=== PATIENT | male | born 1950 | race Caucasian/White ===

== ENCOUNTER 2017-08-15 11:58 | Inpatient (IN) ==
[2017-08-15] MEDS ORDERED: Isovue-370 500 ML INFUS..BTL IV ONE (12:19)
--- NOTE | 2017-08-15 12:22 | Emergency Department Note ---
Disposition Clinical Impression: Hypertensive urgency, Unsteady gait Disposition: Admitted As Inpatient Condition: Fair Referrals: Juancarlos Mayo DO [Family Provider] - Forms: ED Satisfaction Letter Time of Disposition: 16:04 General Adult HPI - General Chief complaint: ED Weakness Stated complaint: weak, falls Time Seen by Provider: 08/15/17 12:04 Source: patient Mode of arrival: ambulatory Limitations: no limitations Nursing Notes Reviewed: Yes Vital Signs Reviewed: Yes - History of Present Illness HPI Narrative: 66-year-old whose had progressive of difficulty walking and about a 50 pound weight loss over the last couple of months. He had an MRI of his lumbar spine showed degenerative changes. Says he has some discomfort in his anterior abdominal wall and it does not related to Lyrica being stopped as his doctor can no longer write for as it has become controlled. Pt Subjective Complaint: Weight loss difficulty walking Onset (ago): week(s) Location: abdomen Radiation: non-radiation Pain Scale: 10 Quality: burning Consistency: constant Improves with: nothing Worsens with: nothing Associated symptoms: Reports: other (Weight loss) - Related Data Allergies Allergy/AdvReac Type Severity Reaction Status Date / Time No Known Allergies Allergy Verified 08/15/17 17:22 All systems ED: reviewed and negative except as stated. Constitutional: Reports: weight change (Loss 50 pounds). Denies: fever, chills , weakness Eyes: Denies: eye pain, eye discharge, vision change ENT ED: Denies: ear pain, throat pain, dental pain, hearing loss, epistaxis, congestion, dysphagia Cardiovascular: Denies: chest pain, palpitations, dyspnea on exertion, edema, syncope Respiratory: Denies: cough, dyspnea, wheezes, hemoptysis, stridor Gastrointestinal: Reports: abdominal pain. Denies: nausea, vomiting, diarrhea, constipation, hematemesis, melena, hematochezia Genitourinary: Denies: urgency, dysuria, frequency, hematuria Musculoskeletal: Denies: back pain, neck pain, arthralgia, myalgia Integumentary: Denies: rash, abrasion, lesions Neurological: Denies: headache, weakness, numbness, paresthesias, confusion, abnormal gait, vertigo Psychiatric: Denies: anxiety, depression, suicidal thoughts, homicidal thoughts , auditory hallucinations, visual hallucinations Endocrine: Denies: fatigue Hematological/Lymphatic: Denies: easy bleeding, easy bruising Allergic/Immunologic: Denies: facial swelling, urticaria Physical Exam - General Limitations: no limitations General appearance: alert, in no apparent distress - Head Head exam: atraumatic, normocephalic, normal inspection - Eye Eye exam: Present: normal appearance, PERRL, EOMI - ENT ENT exam: normal exam, normal oropharynx, mucous membranes moist - Neck Neck exam: Present: normal inspection, full ROM, trachea midline - Chest Chest inspection: Present: normal inspection, symmetric chest wall rise - Respiratory Respiratory exam: Present: normal lung sounds bilaterally - Cardiovascular Cardiovascular exam: Present: regular rate, normal rhythm, normal heart sounds - Abdominal Exam Abdominal exam: Present: soft, Non-Tender. Absent: tenderness, distention, guarding, rebound, rigidity - Extremities Exam Extremities exam: Present: normal inspection, full ROM. Absent: tenderness, pedal edema - Expanded Lower Extremity Exam Neurovascular/Tendon exam: Absent: motor deficit, sensory deficit, tendon deficit Gait: observed and normal - Back Exam Back exam: Present: normal inspection, full ROM. Absent: tenderness - Neurological Exam Neurological exam: Present: alert, oriented X3 - Psychiatric Psychiatric exam: Present: normal affect, normal mood - Skin Skin exam: Present: warm, dry, intact, normal color Course - Reevaluation(s) Reevaluation #1: 66-year-old who comes in complaining of difficulty ambulating 50 pound weight loss unsteady gait. Initial blood pressure was of okay however the blood pressure balwinder steadily while here in emergency department with a diastolic of 137. We will started nicardipine drip and obtained neurology consult were admitted to the hospitalist. Time: 16:03 - Consultations Consultation #1: Discussed with , we will see the patient in consult. Time: 16:01 Consultation #2: Discussed with , admit. Time: 17:26 Vital Signs Temperature 97.5 F L 08/15/17 12:00 Pulse Rate 81 08/15/17 12:00 Respiratory Rate 16 08/15/17 12:00 Blood Pressure 127/81 08/15/17 12:00 O2 Sat by Pulse Oximetry 95 08/15/17 12:00 Temperature 97.5 F L 08/15/17 12:10 Pulse Rate 73 08/15/17 16:34 Respiratory Rate 18 08/15/17 16:34 Blood Pressure 223/121 08/15/17 16:34 O2 Sat by Pulse Oximetry 100 08/15/17 16:34 Oxygen Delivery Oxygen Delivery Room Air Medical Decision Making - Lab Data Result diagrams: 08/15/17 12:28 08/15/17 12:28 Lab Results 08/15/17 08/15/17 08/15/17 Range/Units 12:28 12:28 12:28 WBC 11.9 H (4.3-11.1) K/mcL RBC 5.87 H (4.19-5.50) M/mcL Hgb 17.2 H (12.9-16.9) g/dL Hct 51.0 H (37.5-50.1) % MCV 86.9 (83.0-100.0) fL MCH 29.3 (28.0-33.3) pg MCHC 33.7 (31.6-35.5) g/dL RDW 12.7 (11.5-14.5) % Plt Count 264 (140-400) K/mcL MPV 10.8 (9.4-12.4) fL Immature Gran % 0.4 (0-4) % Seg Neutrophils % 72.0 % Lymphocytes % 16.6 % Monocytes % 5.7 % Eosinophils % 4.5 % Basophils % 0.8 % Neutrophils # 8.6 (1.6-8.9) K/mcL Lymphocytes # 2.0 (0.6-4.6) K/mcL Monocytes # 0.7 (0.0-1.3) K/mcL Eosinophils # 0.5 (0.0-0.6) K/mcL Basophils # 0.1 (0.0-0.2) K/mcL Sodium 138 (136-145) mEq/L Potassium 3.6 (3.5-5.1) mEq/L Chloride 101 (98-107) mEq/L Carbon Dioxide 28 (23-29) mEq/L BUN 20 (8-23) mg/dL Creatinine 1.42 H (0.70-1.30) mg/dL Est GFR ( Amer) > 60 (> 60) Est GFR (Non-Af Amer) 50 L (> 60) BUN/Creatinine Ratio 14 (6-26) Glucose 207 H (70-105) mg/dL Calculated Osmolality 295 (280-300) Lactic Acid 1.6 (0.5-2.2) mmol/L Calcium 9.9 (8.6-10.3) mg/dL Total Bilirubin 0.4 (0.3-1.0) mg/dL Direct Bilirubin 0.2 (0.0-0.2) mg/dL Indirect Bilirubin 0.2 (0.0-1.2) mg/dL AST 13 (13-39) Units/L ALT 9 (7-52) Units/L Alkaline Phosphatase 108 H (34-104) Units/L Troponin I 0.03 (< 0.04) ng/mL Serum Total Protein 7.1 (6.4-8.9) g/dL Albumin 3.8 (3.5-5.7) g/dL Globulin 3.3 (2.4-3.5) g/dL Albumin/Globulin Ratio 1.2 (1.1-2.2) Urine Color (Yellow) Urine Clarity (Clear) Urine pH (5.0-8.0) pH Units Ur Specific [place] (1.010-1.025) Urine Protein (Neg-Trace) mg/dL Urine Glucose (UA) (Normal) mg/dL Urine Ketones (Negative) mg/dL Urine Blood (Negative) Urine Nitrite (Negative) Urine Bilirubin (Negative) Urine Urobilinogen (Normal) mg/dL Ur Leukocyte Esterase (Negative) Urine Microscopic RBC (0-3) per hpf Urine Microscopic WBC (0-3) per hpf Ur Squamous Epith Cells (None-Few) per lpf Urine Bacteria (None-Few) per hpf Hyaline Casts (None-Few) per lpf Ur Culture Indicated? (NO) 08/15/17 Range/Units 15:00 WBC (4.3-11.1) K/mcL RBC (4.19-5.50) M/mcL Hgb (12.9-16.9) g/dL Hct (37.5-50.1) % MCV (83.0-100.0) fL MCH (28.0-33.3) pg MCHC (31.6-35.5) g/dL RDW (11.5-14.5) % Plt Count (140-400) K/mcL MPV (9.4-12.4) fL Immature Gran % (0-4) % Seg Neutrophils % % Lymphocytes % % Monocytes % % Eosinophils % % Basophils % % Neutrophils # (1.6-8.9) K/mcL Lymphocytes # (0.6-4.6) K/mcL Monocytes # (0.0-1.3) K/mcL Eosinophils # (0.0-0.6) K/mcL Basophils # (0.0-0.2) K/mcL Sodium (136-145) mEq/L Potassium (3.5-5.1) mEq/L Chloride (98-107) mEq/L Carbon Dioxide (23-29) mEq/L BUN (8-23) mg/dL Creatinine (0.70-1.30) mg/dL Est GFR ( Amer) (> 60) Est GFR (Non-Af Amer) (> 60) BUN/Creatinine Ratio (6-26) Glucose (70-105) mg/dL Calculated Osmolality (280-300) Lactic Acid (0.5-2.2) mmol/L Calcium (8.6-10.3) mg/dL Total Bilirubin (0.3-1.0) mg/dL Direct Bilirubin (0.0-0.2) mg/dL Indirect Bilirubin (0.0-1.2) mg/dL AST (13-39) Units/L ALT (7-52) Units/L Alkaline Phosphatase (34-104) Units/L Troponin I (< 0.04) ng/mL Serum Total Protein (6.4-8.9) g/dL Albumin (3.5-5.7) g/dL Globulin (2.4-3.5) g/dL Albumin/Globulin Ratio (1.1-2.2) Urine Color Yellow (Yellow) Urine Clarity Clear (Clear) Urine pH 6.0 (5.0-8.0) pH Units Ur Specific [place] 1.021 (1.010-1.025) Urine Protein 30 H (Neg-Trace) mg/dL Urine Glucose (UA) Normal (Normal) mg/dL Urine Ketones Negative (Negative) mg/dL Urine Blood Negative (Negative) Urine Nitrite Negative (Negative) Urine Bilirubin Negative (Negative) Urine Urobilinogen Normal (Normal) mg/dL Ur Leukocyte Esterase Trace H (Negative) Urine Microscopic RBC 0-3 (0-3) per hpf Urine Microscopic WBC 0-3 (0-3) per hpf Ur Squamous Epith Cells Few (None-Few) per lpf Urine Bacteria None Seen (None-Few) per hpf Hyaline Casts None Seen (None-Few) per lpf Ur Culture Indicated? YES A (NO) - EKG Data EKG #1 EKG attestation: Yes I reviewed and interpreted this EKG. EKG shows normal: sinus rhythm Rate: normal Rhythm: NSR [place]/QRS: RBBB, LAHB/LAFB Voltage: c/w LVH Interpretation: no acute changes
[2017-08-15 12:51] LABS: Basophils # 0.1 K/mcL (0.0-0.2); Basophils % 0.8 %; Eosinophils # 0.5 K/mcL (0.0-0.6); Eosinophils % 4.5 %; Hemoglobin 17.2 g/dL (12.9-16.9); Immature Granulocytes % 0.4 % (0-4); Lymphocytes % 16.6 %; Mean Corpuscular HGB Conc 33.7 g/dL (31.6-35.5); Mean Corpuscular Hemoglobin 29.3 pg (28.0-33.3); Mean Corpuscular Volume 86.9 fL (83.0-100.0); Mean Platelet Volume 10.8 fL (9.4-12.4); Monocytes # 0.7 K/mcL (0.0-1.3); Monocytes % 5.7 %; Neutrophils # 8.6 K/mcL (1.6-8.9); Platelet Count 264 K/mcL (140-400); Red Blood Count 5.87 M/mcL (4.19-5.50); Red Cell Distribution Width 12.7 % (11.5-14.5)
[2017-08-15 13:10] LABS: Alanine Aminotransferase 9 Units/L (7-52); Albumin 3.8 g/dL (3.5-5.7); Albumin/Globulin Ratio 1.2 (1.1-2.2); Alkaline Phosphatase 108 Units/L (34-104); Aspartate Amino Transferase 13 Units/L (13-39); BUN/Creatinine Ratio 14 (6-26); Bilirubin,Direct 0.2 mg/dL (0.0-0.2); Bilirubin,Indirect 0.2 mg/dL (0.0-1.2); Bilirubin,Total 0.4 mg/dL (0.3-1.0); Blood Urea Nitrogen 20 mg/dL (8-23); Calcium 9.9 mg/dL (8.6-10.3); Carbon Dioxide 28 mEq/L (23-29); Chloride 101 mEq/L (98-107); Globulin 3.3 g/dL (2.4-3.5); Glucose 207 mg/dL (70-105); Osmolality,Calculated 295 (280-300); Potassium 3.6 mEq/L (3.5-5.1); Sodium 138 mEq/L (136-145); Total Protein 7.1 g/dL (6.4-8.9); Troponin I 0.03 ng/mL (< 0.04); eGFR For African Americans > 60 (> 60); eGFR For Non-African Americans 50 (> 60)
[2017-08-15] MEDS ORDERED: 0.9 % Sodium Chloride 1,000 ML IVC ONE (13:41)
[2017-08-15] MEDS ORDERED: Ondansetron 4 MG/2 ML VIAL IVP ONE ×2 (13:41→18:54)
[2017-08-15] MEDS ORDERED: *HR* FentaNYL (PF) 100 MCG/2 ML VIAL IVP ONE (13:41)
[2017-08-15 15:47] LABS: Bilirubin,Urine Negative (Negative); Blood,Urine Negative (Negative); Clarity,Urine Clear (Clear); Color,Urine Yellow (Yellow); Glucose,Urine (UA) Normal (Normal); Ketones,Urine Negative (Negative); Leukocyte Esterase,Urine Trace (Negative); Nitrite,Urine Negative (Negative); Protein,Urine 30 mg/dL (Neg-Trace); Specific Gravity,Urine 1.021 (1.010-1.025); Urobilinogen,Urine Normal (Normal)
[2017-08-15 15:49] LABS: Bacteria,Urine None Seen per hpf (None-Few); Hyaline Casts,Urine None Seen per lpf (None-Few); RBC,Urine 0-3 per hpf (0-3); Squamous Epithelial Cell,Urine Few per lpf (None-Few); WBC,Urine 0-3 per hpf (0-3)
[2017-08-15] MEDS: niCARdipine 40 MG/200 ML MLS IVC SCH (16:33)
[2017-08-15] MEDS ORDERED: Naloxone 0.4 MG/ML INJ IVP PRN (18:04)
[2017-08-15] MEDS ORDERED: Acetaminophen 325 MG TABLET PO PRN (18:04)
[2017-08-15] MEDS ORDERED: Ondansetron 4 MG/2 ML VIAL IVP PRN (18:04)
[2017-08-15] MEDS ORDERED: Mag Hydrox/Al Hydrox/Simeth 30 ML UDC PO PRN (18:04)
[2017-08-15] MEDS ORDERED: 0.9 % Sodium Chloride 1,000 ML IVC SCH (18:15)
--- NOTE | 2017-08-15 18:42 | Internal Med History&Physical ---
Date of Encounter: 08/15/17 Time of Encounter: 18:40 Internal Medicine - H&P: HPI Chief complaint: Abdominal pain Admitted From: Home Plans for Post Hospital Care: Home History of present illness: Mr. Waters is a 66 year old male presented to the emergency department with left- sided abdominal pain. Patient also complaining of difficulty walking and he lost about 50 pounds over the last few months. He is awake alert oriented. Blood pressure was elevated on presentation 223/137. Patient was started on nicardipine drip in the emergency department. On my interviewing the patient denied any chest pain. He said his abdominal pain is much better now. He feels a little nauseated but he did not vomit. Patient denied any headache no blurry vision no changes in bowel movement. He stated he had some difficulty walking over the last few weeks. Neurology was contacted from the emergency department and they will see the patient on consult. Past Med Surg Social Fam HX - Past Medical History Medical history: arthritis, diabetes, hyperlipidemia, hypertension, myocardial infarction Additional medical history: cardiac stent x3, L endarterectomy Psychiatric history: no psych history - Past Surgical History Additional surgical history: skin cancer removal - Social History Smoking Status: Former smoker Smokeless Tobacco Status: No Alcohol use: none Drug use: none - Additional Family History Additional family history: Family history positive for hypertension and diabetes Internal Medicine - H&P: Meds Amlodipine Besylate 10 mg PO DAILY 08/15/17 [History] Atenolol [Tenormin] 50 mg PO DAILY 08/15/17 [History] Clopidogrel [Plavix] 75 mg PO DAILY 08/15/17 [History] Insulin 08/15/17 [History] Lisinopril [Zestril] 20 mg PO BID 08/15/17 [History] Tizanidine HCl [Zanaflex] 4 - 8 mg PO HS 08/15/17 [History] cloNIDine HCl [CloNIDine HCl] 0.1 mg PO HS 08/15/17 [History] metFORMIN [Glucophage] 500 mg PO QID 08/15/17 [History] 3 Allergy/AdvReac Type Severity Reaction Status Date / Time No Known Allergies Allergy Verified 08/15/17 17:22 All Systems PM: A 10-system review of systems was performed and is negative for pertinent findings except as documented above in the HPI. - Constitutional Vitals: Temp Pulse Resp BP Pulse Ox 97.5 F L 86 18 175/118 97 08/15/17 12:10 08/15/17 18:15 08/15/17 18:15 08/15/17 18:15 08/15/17 18:15 - Head Head exam: Present: atraumatic, normocephalic - Eye Eye exam: Present: PERRL, conjuntiva pink, sclera anicteric Pupils: Present: PERRL - Respiratory Respiratory exam: Present: CTAB. Absent: accessory muscle use, rales, rhonchi, wheezes - Cardiovascular Cardiovascular exam: Present: RRR, +S1, +S2. Absent: diastolic murmur, gallop, rubs, systolic murmur - GI/Abdominal Additional comments: Some vague tenderness on the left side but patient stated it is better - Extremities Exam Extremities exam: Present: warm, radial pulses palpable and symmetrical. Absent : calf tenderness, cyanotic, pedal edema - Neurological Exam Neurological exam: Present: CN II-XII intact, oriented X3, no focal deficits. Absent: pronater drift, facial droop, speech deficit Additional comments: Patient did not want to walk the complete physical exam - Skin Skin exam: Present: dry, intact Internal Med - H&P Results - Labs CBC & Chem 7: 08/15/17 12:28 08/15/17 12:28 - Assessment and plan (1) Hypertensive urgency Current Visit: Yes Status: Acute Assessment and plan: Patient was started on nicardipine drip Monitor blood pressure very closely to avoid significant drop. No more than 25 % over the first 8 hours Manually nicardipine drip off Will get serial troponin Patient denied any headache no blurry vision no chest pain. CT head was done was negative CT abdomen was negative Patient stated he had some difficulty walking within the last few weeks. Neurology consult is from the emergency department. Appreciate input We will get MRI brain for further evaluation Check vitamin B12, folic acid, fasting lipid panel, TSH Physical therapy and occupational therapy (2) Dehydration Current Visit: Yes Status: Acute Assessment and plan: Patient is dehydrated and hemoconcentrated Gentle IV hydration with normal saline Monitor kidney function tests. Monitor labs (3) Acute kidney injury Current Visit: Yes Status: Acute Assessment and plan: Mild. Due to dehydration Continue IV hydration. Avoid nephrotoxic agents Monitor labs (4) Ataxia Current Visit: Yes Status: Acute Assessment and plan: Difficulty walking for the past few weeks Plan as above (5) On esomeprazole prophylaxis Current Visit: Yes Status: Acute (6) DVT prophylaxis Current Visit: Yes Status: Acute - Time Spent With Patient Total time spent is greater than 50% in coordination of care (as documented) at patient's floor/unit and/or counseling patient:
[2017-08-15] MEDS ORDERED: *HR* HYDROmorphone (PF) 1 MG/ML SYRINGE IVP ONE (18:54)
[2017-08-15] MEDS: tiZANidine 4 MG TABLET PO SCH (22:06)
[2017-08-15] MEDS: cloNIDine HCl 0.1 MG TABLET PO SCH (22:06)
[2017-08-16] MEDS: *HR* Enoxaparin 40 MG/0.4 ML SYRINGE SQ SCH (05:12)
[2017-08-16] MEDS ORDERED: *HR* HYDROcodone/Acet 5/325 mg TABLET PO ONE (05:25)
[2017-08-16 05:48] LABS: Basophils # 0.1 K/mcL (0.0-0.2); Basophils % 0.9 %; Eosinophils # 0.6 K/mcL (0.0-0.6); Eosinophils % 6.1 %; Hemoglobin 17.1 g/dL (12.9-16.9); Immature Granulocytes % 0.4 % (0-4); Lymphocytes # 1.8 K/mcL (0.6-4.6); Mean Corpuscular HGB Conc 34.9 g/dL (31.6-35.5); Mean Corpuscular Hemoglobin 29.8 pg (28.0-33.3); Mean Corpuscular Volume 85.5 fL (83.0-100.0); Mean Platelet Volume 10.9 fL (9.4-12.4); Monocytes # 0.7 K/mcL (0.0-1.3); Neutrophils # 6.5 K/mcL (1.6-8.9); Platelet Count 251 K/mcL (140-400); Red Blood Count 5.73 M/mcL (4.19-5.50); Red Cell Distribution Width 12.4 % (11.5-14.5); Segmented Neutrophils % 66.6 %
[2017-08-16] MEDS: niCARdipine 40 MG/200 ML MLS IVC SCH ×2 (06:03→18:01)
[2017-08-16 06:07] LABS: BUN/Creatinine Ratio 13 (6-26); Blood Urea Nitrogen 17 mg/dL (8-23); Calcium 9.5 mg/dL (8.6-10.3); Carbon Dioxide 25 mEq/L (23-29); Chloride 105 mEq/L (98-107); Chol/HDL Ratio 5.8 (0-4.9); Cholesterol 191 mg/dL (< 200); Glucose 148 mg/dL (70-105); HDL Cholesterol 33 mg/dL (40-59); LDL Cholesterol,Calculated 126 mg/dL (0-99); Magnesium 1.8 mg/dL (1.6-2.6); Osmolality,Calculated 290 (280-300); Phosphorous 3.3 mg/dL (2.7-4.5); Potassium 3.5 mEq/L (3.5-5.1); Sodium 138 mEq/L (136-145); Triglycerides 158 mg/dL (< 150); eGFR For African Americans > 60 (> 60); eGFR For Non-African Americans 54 (> 60)
--- NOTE | 2017-08-16 09:12 | Neurology - Consult Note ---
<Yash Quiros - Last Filed: 08/16/17 12:12> Date of Encounter: 08/16/17 Time of Encounter: 10:00 Assessment and Plan (1) Chronic low back pain Current Visit: Yes Status: Acute Patient with Chronic Back pain with R sided sciatic pain. Patient previously on gabapentin lyrica, but new PCP stopped these medications. Patient difficulty ambulating secondary to pain. Patient denies numbness, tingling, weakness. Patient's symptoms consistent with ridiculopathy. Patient in too much pain to test strength. Patient reports prior history of Epidural injections with temporary relief. Recommendations: Obtain MRI of Low back Consult to PMR/pain management Qualifiers: Back pain laterality: midline Sciatica presence: with sciatica Sciatica laterality: sciatica of right side Qualified Code(s): M54.41 - Lumbago with sciatica, right side; G89.29 - Other chronic pain (2) Chronic pain of right lower extremity Current Visit: Yes Status: Acute History of Present Illness Chief complaint: RLE Pain HPI: Mr. Waters is a 66 year old male c PMHx of arthritis, diabetes, hyperlipidemia, hypertension, myocardial infarction s/p 3 stents who reports to the [facility] c/o RLE pain, difficulty walking. Per patient he has had these symptoms for years, but they are perhaps a little bit worse recently. Patient reports he "broke his back and his hip in 1967" and has had pain since then. Patient reports they did not do any surgery for this injury. He denies recent trauma to the back or RLE. He denies numbness or tingling. He denies weakness in the RLE just reports it is painful. He is not amenable to strength testing of RLE. Patient reports getting epidural injections in the past with temporary relief. Past Med Surg Social Fam HX - Past Medical History Medical history: arthritis, diabetes, hyperlipidemia, hypertension, myocardial infarction Additional medical history: cardiac stent x3, L endarterectomy Psychiatric history: no psych history - Past Surgical History Additional surgical history: skin cancer removal - Social History Smoking Status: Former smoker Smokeless Tobacco Status: No Alcohol use: none Drug use: none Medications and Allergies Amlodipine Besylate 10 mg PO DAILY 08/15/17 [History] Atenolol [Tenormin] 50 mg PO DAILY 08/15/17 [History] Clopidogrel [Plavix] 75 mg PO DAILY 08/15/17 [History] Insulin 08/15/17 [History] Lisinopril [Zestril] 20 mg PO BID 08/15/17 [History] Tizanidine HCl [Zanaflex] 4 - 8 mg PO HS 08/15/17 [History] cloNIDine HCl [CloNIDine HCl] 0.1 mg PO HS 08/15/17 [History] metFORMIN [Glucophage] 500 mg PO QID 08/15/17 [History] 3 Allergy/AdvReac Type Severity Reaction Status Date / Time No Known Allergies Allergy Verified 08/15/17 17:22 All Systems: The remainder of the systems were reviewed and are negative except where noted in the HPI Physical Examination - Vital Signs Vital Signs: Initial Vital Signs Temp Pulse Resp BP Pulse Ox 97.5 F L 81 16 127/81 95 08/15/17 12:00 08/15/17 12:00 08/15/17 12:00 08/15/17 12:00 08/15/17 12:00 - Constitutional General appearance: uncomfortable - Neurologic Sensorimotor examination: intact Motor examination - right side: 3/5: tibialis Anterior (uanble to fully test RLE strength as patient refuses due to pain), toe extension (EHL), plantarflexion, 5/5: deltoids, biceps, triceps, wrist flexion, wrist extension, japanese tutor Motor examination - left side: 5/5: deltoids, biceps, triceps, wrist flexion, wrist extension, hip flexors, japanese tutor, quadriceps, tibialis Anterior, toe extension (EHL), plantarflexion Detailed sensory examination: intact, light touch Reflexes: Biceps: 2+, Patella: 2+ Mental Status Examination: awake, alert, oriented to person, oriented to place, oriented to time, follows commands appropriately, answers questions appropriately Cranial nerve examination: PERRL, EOMI, visual hawley intact, sensory to face intact, no facial asymmetry is present, no dysarthria, hearing is intact symmetrically, soft palate elevates bilaterally upon phonation, flexes SCM and trapezius muscles symmetrically with full power, tongue protrudes midline, no atrophy or facial fasiculations present Results - Laboratory Findings CBC and BMP: 08/16/17 05:12 08/16/17 05:12 Abnormal lab findings: Abnormal lab results RBC 5.73 M/mcL (4.19-5.50) H 08/16/17 05:12 Hgb 17.1 g/dL (12.9-16.9) H 08/16/17 05:12 Creatinine 1.32 mg/dL (0.70-1.30) H 08/16/17 05:12 Est GFR (Non-Af Amer) 54 (> 60) L 08/16/17 05:12 Glucose 148 mg/dL (70-105) H 08/16/17 05:12 POC Glucose 142 mg/dL (70-99) H 08/15/17 21:56 Alkaline Phosphatase 108 Units/L (34-104) H 08/15/17 12:28 Triglycerides 158 mg/dL (< 150) H 08/16/17 05:12 LDL Cholesterol, Calc 126 mg/dL (0-99) H 08/16/17 05:12 VLDL Cholesterol, Calc 32 mg/dL (< 31) H 08/16/17 05:12 HDL Cholesterol 33 mg/dL (40-59) L 08/16/17 05:12 Cholesterol/HDL Ratio 5.8 (0-4.9) H 08/16/17 05:12 Urine Protein 30 mg/dL (Neg-Trace) H 08/15/17 15:00 Ur Leukocyte Esterase Trace (Negative) H 08/15/17 15:00 Ur Culture Indicated? YES (NO) A 08/15/17 15:00 Consult Discharge Plan - Plan Referrals: Chandrika Roman MD [Non-Partnered Physician] - 08/22/17 8:40 am <Gurwinder Almazan - Last Filed: 08/16/17 15:01> Date of Encounter: 08/16/17 Time of Encounter: 14:55 Assessment and Plan (1) Weakness of right lower extremity Current Visit: Yes Status: Acute (2) Chronic low back pain Current Visit: Yes Status: Acute As above. Differential diagnosis should include right lumbar plexopathy rule out right L3-L4 radiculopathy, L5-S1 radiculopathy, lumbar stenosis has he does have weakness of the right quadricep the right hip flexors and all of the muscles below the knee on the right. It seems as though the acute weakness is superimposed on chronic weakness. He does have diminished reflexes in the right patellar, however the left patellar is normoreflexic in the right Achilles is diminished at 1/4, the left Achilles is 2/4. I am doubtful of Guillain-[place] syndrome. Further recommendations will be made pending the outcome of the MRI of the lumbar spine. If this is negative then I would want to image the abdomen and pelvis. Qualifiers: Back pain laterality: midline Sciatica presence: with sciatica Sciatica laterality: sciatica of right side Qualified Code(s): M54.41 - Lumbago with sciatica, right side; G89.29 - Other chronic pain History of Present Illness HPI: The chart was reviewed, case was discussed with Dr. Quiros, I did see and assess the patient independently. I agree with the resident's assessment as stated above. All Systems: The remainder of the systems were reviewed and are negative Review of Systems: The balance of the systems review is negative. Physical Examination - Vital Signs Vital Signs: Initial Vital Signs Temp Pulse Resp BP Pulse Ox 97.5 F L 81 16 127/81 95 08/15/17 12:00 08/15/17 12:00 08/15/17 12:00 08/15/17 12:00 08/15/17 12:00 - Neurologic Motor examination - right side: 2/5: hip flexors, 3/5: quadriceps Ataxia: truncal ataxia Results - Laboratory Findings CBC and BMP: 08/16/17 05:12 08/16/17 05:12 Abnormal lab findings: Abnormal lab results RBC 5.73 M/mcL (4.19-5.50) H 08/16/17 05:12 Hgb 17.1 g/dL (12.9-16.9) H 08/16/17 05:12 Creatinine 1.32 mg/dL (0.70-1.30) H 08/16/17 05:12 Est GFR (Non-Af Amer) 54 (> 60) L 08/16/17 05:12 Glucose 148 mg/dL (70-105) H 08/16/17 05:12 POC Glucose 142 mg/dL (70-99) H 08/15/17 21:56 Alkaline Phosphatase 108 Units/L (34-104) H 08/15/17 12:28 Triglycerides 158 mg/dL (< 150) H 08/16/17 05:12 LDL Cholesterol, Calc 126 mg/dL (0-99) H 08/16/17 05:12 VLDL Cholesterol, Calc 32 mg/dL (< 31) H 08/16/17 05:12 HDL Cholesterol 33 mg/dL (40-59) L 08/16/17 05:12 Cholesterol/HDL Ratio 5.8 (0-4.9) H 08/16/17 05:12 Lipase 8 Units/L (11-82) L 08/16/17 12:51 Urine Protein 30 mg/dL (Neg-Trace) H 08/15/17 15:00 Ur Leukocyte Esterase Trace (Negative) H 08/15/17 15:00 Ur Culture Indicated? YES (NO) A 08/15/17 15:00
[2017-08-16] MEDS: amLODIPine 5 MG TABLET PO SCH (09:24)
[2017-08-16] MEDS ORDERED: 0.9 % Sodium Chloride 500 ML ONE (10:34)
[2017-08-16] MEDS: traMADol 50 MG TABLET PO PRN (11:40)
--- NOTE | 2017-08-16 11:41 | Internal Med Progress Note ---
Date of Encounter: 08/16/17 Time of Encounter: 11:25 - Assessment and plan (1) Hypertensive urgency Current Visit: Yes Status: Acute Assessment and plan: History of hypertension. In ER severely high blood pressure therefore the Cardene drip was restarted and eventually patient responded and drip discontinued. CT head and MRI head with no acute finding. Troponin negative. Blood pressure is within normal limit now. Continue home medicine with close monitoring of BP. Hydralazine when necessary IV. (2) Abdominal pain Current Visit: Yes Status: Acute Assessment and plan: Chronic Diffuse generalized. But no acute abdomen finding. Better now since admission .Lipase amylase stool occult ordered. Urine analysis with no acute finding. CT abdomen and pelvis with no acute finding. Continue to monitor. Qualifiers: Abdominal location: generalized Qualified Code(s): R10.84 - Generalized abdominal pain (3) Acute kidney injury Current Visit: Yes Status: Acute Assessment and plan: Possibly prerenal due to dehydration. Strict I&O's, gentle hydration normal saline 75 mL per hour. Repeat BMP. (4) Weakness of right lower extremity Current Visit: Yes Status: Acute Assessment and plan: Progressively worse over 3 weeks but did not seek medical advice. No urinary or bowel incontinence. Patient also has lower back pain especially right side but no tenderness spine. Neurologist was consulted and wait for his recommendation. MRI spine will be considered upper discussing with neurologist. Fall precaution. (5) Chronic low back pain Current Visit: Yes Status: Acute Assessment and plan: Low back pain more right side with radiculopathy. MRI spine ordered. Pain management with Ultram and Tylenol. Avoid and assess due to acute kidney injury. May consider putting him back on Neurontin or Lyrica after discussing with neurologist Qualifiers: Back pain laterality: midline Sciatica laterality: sciatica of right side Qualified Code(s): M54.41 - Lumbago with sciatica, right side; G89.29 - Other chronic pain (6) Weight loss, unintentional Current Visit: Yes Status: Acute Assessment and plan: Lost around 25 pound in last 2-3 months as per patient but no workup done. He addressed to his PCP. Basic malignancy rule out workup will be ordered. Patient is chronic a smoker quit 5 years ago with intermittent cough therefore CT chest ordered. PSA, Hemoccult, TSH ordered. Will consult ctrs as well (7) DVT prophylaxis Current Visit: Yes Status: Acute Assessment and plan: SCDs - Time Spent With Patient Total time spent is greater than 50% in coordination of care (as documented) at patient's floor/unit and/or counseling patient: Greater than 35 minutes - Subjective Interval history: Patient is poor historian and take very prison to recall the information and also evaluation in formation. As per patient he has chronic back pain and his primary care physician has been treating him on Neurontin and Lyrica for long time but not sure the duration exactly in 2 months back when change the PCP then new PCP is stopped these medicine all of sudden. Eventually patient is started to the rule out for body pain but mostly in back and diffuse abdomen. For last 3 weeks he noticed weakness in right lower extremity and has been prone to fall but did not fall as per patient. He denies tingling numbness in affected area. He did not seek further advice from PCP but came to ER yesterday with complaint of severe pain. Initially blood pressure was very high and he got treated for hypertensive urgency and he responded well but seems like more due to underlying pain. Patient denies fever chills nausea vomiting headache dizziness chest pain shortness of breath tingling numbness urinary bowel incontinence - Constitutional Vitals: Temp Pulse Resp BP Pulse Ox 97.9 F 66 20 148/87 97 08/16/17 11:12 08/16/17 11:12 08/16/17 11:12 08/16/17 11:12 08/16/17 11:12 Exam: General appearance: Moderate distress due to pain A&O X 3 Head exam: Atraumatic Eye exam: EOMI, PERRLA ENT exam: Moist oral mucosa Neck nontender, supple Respiratory exam: Clear to auscultation bilaterally Cardiovascular exam: Regular rate and rhythm Abdominal exam: Soft, diffuse tender, nondistended, positive bowel sounds Extremities exam: No calf tenderness, no pedal edema Present: Skin- warm, dry, intact Neurological exam: Alert, awake, oriented 3, CN II-XII intact. Right lower extremity motor strength 1-2 x 5 otherwise rest of her extremities 5 x 5. No facial droop. Normal speech. Not able to walk due to right lower extremity weakness Internal Medicine: Result - Labs CBC & Chem 7: 08/16/17 05:12 08/16/17 05:12 Labs: Short CBC 08/16/17 Range/Units 05:12 WBC 9.7 (4.3-11.1) K/mcL Hgb 17.1 H (12.9-16.9) g/dL Hct 49.0 (37.5-50.1) % Plt Count 251 (140-400) K/mcL Neutrophils # 6.5 (1.6-8.9) K/mcL BMP 08/16/17 05:12 Sodium 138 Potassium 3.5 Chloride 105 Carbon Dioxide 25 BUN 17 Creatinine 1.32 H Glucose 148 H Calcium 9.5 Cardiac Enzymes 08/15/17 08/15/17 08/16/17 Range/Units 19:34 23:16 05:12 Troponin I 0.03 0.03 0.03 (< 0.04) ng/mL - Impressions Impressions Brain MRI 08/15/17 18:36 IMPRESSION: No acute infarct. D/ / Aleksander Marcelo MD / Aleksander Marcelo MD Interpreting Provider: Aleksander Marcelo MD Consult Discharge Plan - Plan Referrals: Chandrika Roman MD [Non-Partnered Physician] - 08/22/17 8:40 am
[2017-08-16] MEDS: 0.9 % Sodium Chloride 1,000 ML IVC SCH (12:06)
[2017-08-16 13:36] LABS: Amylase 63 Units/L (29-103); Lipase 8 Units/L (11-82)
[2017-08-16] MEDS ORDERED: Dexamethasone 4 MG/ML VIAL IVP ONE (13:45)
[2017-08-16] MEDS: Gabapentin 100 MG CAPSULE PO SCH ×2 (14:09→20:55)
[2017-08-16] MEDS: *HR* HYDROcodone/Acet 7.5/325 mg TABLET PO PRN (14:19)
[2017-08-16] MEDS: Dexamethasone 4 MG/ML VIAL IVP SCH ×2 (14:20→20:55)
[2017-08-16] MEDS: Acetaminophen IV 1,000 MG/100 ML INFUS..BTL IVPB SCH (18:02)
--- NOTE | 2017-08-16 18:22 | Electrocardiograph Report ---
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
--- NOTE | 2017-08-16 18:38 | Electrocardiograph Report ---
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
[2017-08-16] MEDS: cloNIDine HCl 0.1 MG TABLET PO SCH (20:55)
[2017-08-16] MEDS: tiZANidine 4 MG TABLET PO SCH (20:55)
[2017-08-17] MEDS: Acetaminophen IV 1,000 MG/100 ML INFUS..BTL IVPB SCH ×5 (00:26→23:27)
[2017-08-17] MEDS: 0.9 % Sodium Chloride 1,000 ML IVC SCH (00:26)
[2017-08-17] MEDS: niCARdipine 40 MG/200 ML MLS IVC SCH ×2 (04:00→14:50)
[2017-08-17] MEDS: Dexamethasone 4 MG/ML VIAL IVP SCH ×3 (06:01→22:47)
[2017-08-17] MEDS: *HR* Enoxaparin 40 MG/0.4 ML SYRINGE SQ SCH (06:19)
[2017-08-17] MEDS ORDERED: Nitroglycerin 0.4 MG TAB.SUBL SL PRN (06:34)
[2017-08-17] MEDS: amLODIPine 5 MG TABLET PO SCH (08:04)
[2017-08-17] MEDS: Gabapentin 100 MG CAPSULE PO SCH ×3 (08:04→20:34)
--- NOTE | 2017-08-17 11:49 | Neurology Progress Note ---
Date of Encounter: 08/17/17 Time of Encounter: 11:47 Assessment and Plan (1) Weakness of right lower extremity Current Visit: Yes Status: Acute Highly suspicious of lumbar radiculopathy versus lumbar spinal stenosis causing this gentleman's problems. Identified and incomplete MRI study of the lumbar spine completed at our [place] facility in March of this year. There is no radiologic interpretation attached however I can identify that there is significant lumbar spinal stenosis at the L4-L5 level. Hopefully we can get the MRI of the lumbar spine completed soon and determine whether not this is worse. If this is in fact the problem, then surgical intervention will be necessary. May consider Solu-Medrol 125 mg IVPB every 4-6 hours to help decrease inflammation which may improve his strength. However this may also increase his blood pressure. I will reevaluate tomorrow. (2) Chronic low back pain Current Visit: Yes Status: Acute Qualifiers: Back pain laterality: midline Sciatica presence: with sciatica Sciatica laterality: sciatica of right side Qualified Code(s): M54.41 - Lumbago with sciatica, right side; G89.29 - Other chronic pain Subjective Interval history: Chart reviewed patient seen and examined. No acute changes. He still has weakness of the right lower extremity. MRI scan of the lumbar spine is pending because he is still hypertensive and on a Cardene drip. I did find an MRI scan of the lumbar spine which was done in [place] in March of this year. It looks like the study however was incomplete. But based on the few images available I am able to identify significant lumbar stenosis at the L4-L5 level. Objective - Constitutional Vitals: Temp Pulse Resp BP Pulse Ox 98.4 F 67 18 167/71 98 08/17/17 11:02 08/17/17 11:02 08/17/17 11:02 08/17/17 11:02 08/17/17 11:02 - Neurological Exam Sensorimotor examination: Present: intact Motor examination - right side: 2/5: hip flexors, 3/5: tibialis Anterior, quadriceps, toe extension (EHL), 4/5: plantarflexion, 5/5: deltoids, biceps, triceps, call center operator Motor examination - left side: 3/5: quadriceps, 5/5: deltoids, biceps, triceps, wrist flexion, wrist extension, hip flexors, call center operator, tibialis Anterior, toe extension (EHL), plantarflexion Sensation intact: Present: intact, light touch Mental Status Examination: Present: awake, alert, oriented to person, oriented to place, oriented to time, follows commands appropriately, answers questions appropriately Cranial nerve examination: Present: PERRL, EOMI, visual hawley intact, sensory to face intact, no facial asymmetry is present, no dysarthria, hearing is intact symmetrically, soft palate elevates bilaterally upon phonation, flexes SCM and trapezius muscles symmetrically with full power, tongue protrudes midline, no atrophy or facial fasiculations present - VTE Documentation of Mechanical Device: Intermittent pneumatic compression device Results - Laboratory Findings CBC and BMP: 08/16/17 05:12 08/16/17 05:12 Abnormal lab findings: Abnormal lab results RBC 5.73 M/mcL (4.19-5.50) H 08/16/17 05:12 Hgb 17.1 g/dL (12.9-16.9) H 08/16/17 05:12 Creatinine 1.32 mg/dL (0.70-1.30) H 08/16/17 05:12 Est GFR (Non-Af Amer) 54 (> 60) L 08/16/17 05:12 Glucose 148 mg/dL (70-105) H 08/16/17 05:12 POC Glucose 139 mg/dL (70-99) H 08/16/17 11:12 Alkaline Phosphatase 108 Units/L (34-104) H 08/15/17 12:28 Troponin I 0.07 ng/mL (< 0.04) H* 08/17/17 06:52 Triglycerides 158 mg/dL (< 150) H 08/16/17 05:12 LDL Cholesterol, Calc 126 mg/dL (0-99) H 08/16/17 05:12 VLDL Cholesterol, Calc 32 mg/dL (< 31) H 08/16/17 05:12 HDL Cholesterol 33 mg/dL (40-59) L 08/16/17 05:12 Cholesterol/HDL Ratio 5.8 (0-4.9) H 08/16/17 05:12 Lipase 8 Units/L (11-82) L 08/16/17 12:51 Urine Protein 30 mg/dL (Neg-Trace) H 08/15/17 15:00 Ur Leukocyte Esterase Trace (Negative) H 08/15/17 15:00 Ur Culture Indicated? YES (NO) A 08/15/17 15:00 Consult Discharge Plan - Plan Referrals: Chandrika Roman MD [Non-Partnered Physician] - 08/22/17 8:40 am
--- NOTE | 2017-08-17 13:17 | Internal Med Progress Note ---
Date of Encounter: 08/17/17 Time of Encounter: 13:14 - Assessment and plan (1) NSTEMI (non-ST elevated myocardial infarction) Current Visit: Yes Status: Acute Assessment and plan: No active chest pain but history of CAD status post 3 stent. Continue Plavix added beta gilda metoprolol 25 mg every 6 hours with hold parameters. Echocardiogram ordered. Serial troponin and CPK. Echocardiogram ordered. Consulted big data hadoop developer. (2) Hypertensive urgency Current Visit: Yes Status: Acute Assessment and plan: Monitor blood pressure in weaning down the Cardene. Started beta gilda 25 mg every 6 hours, continue clonidine. His start of IV fluid. Continue to monitor otherwise will increase dose of Klonopin underlying. I am not sure patient why not on EZEQUIEL inhibitor and that can be considered if okay with big data hadoop developer. History of hypertension. In ER severely high blood pressure therefore the Cardene drip was started. Hydralazine when necessary IV. (3) Abdominal pain Current Visit: Yes Status: Acute Assessment and plan: No nonspecific. No complaint of abdominal pain today. Lipase amylase normal. Urine analysis with no acute finding. CT abdomen and pelvis with no acute finding. Continue to monitor. Qualifiers: Abdominal location: generalized Qualified Code(s): R10.84 - Generalized abdominal pain (4) Acute kidney injury Current Visit: Yes Status: Acute Assessment and plan: Troponin and creatinine level. Possibly prerenal due to dehydration. Strict I& O's. stopped IV fluid as patient taking oral diet.Repeat BMP. (5) Weakness of right lower extremity Current Visit: Yes Status: Acute Assessment and plan: Progressively worse over 3 weeks but did not seek medical advice. No urinary or bowel incontinence. Patient also has lower back pain especially right side but no tenderness spine. Neurologist on board. MRI LS spine ordered but not done yet as patient on Cardene drip. Made adjustment in blood pressure medicine and will discontinue Cardene drip based on response. Reviewed MRI done at [facility] in March 2017 with no radiological interpretation a test but appear lumbar spinal stitch stenosis at L4-5 I talked to daughter at phoneand she informed that patient got evaluated for a spine stenosis and was advise for medical management as it was pulled that surgery will make his problem only worse. Low-dose Neurontin 200 mg 3 times a day started. Continue fall precaution. (6) Chronic low back pain Current Visit: Yes Status: Acute Assessment and plan: Low back pain with right side radiculopathy. MRI spine ordered. Continue pain management IV Tylenol, hydrocodone, gabapentin and Zanaflex. Avoid nsaids due to acute kidney injury. Qualifiers: Back pain laterality: midline Sciatica presence: with sciatica Sciatica laterality: sciatica of right side Qualified Code(s): M54.41 - Lumbago with sciatica, right side; G89.29 - Other chronic pain (7) Weight loss, unintentional Current Visit: Yes Status: Acute Assessment and plan: Lost around 25 pound in last 2-3 months as per patient but no workup done. He addressed to his PCP. Normal TSH, normal PSA. Hemoccult test is still awaited. Consulted patient information coordinator. Patient is chronic a smoker quit 5 years ago with intermittent cough therefore CT chest ordered. PSA, Hemoccult, TSH ordered. CT abdomen with no acute finding. Will consult patient information coordinator as well (8) Dementia Current Visit: Yes Status: Acute Assessment and plan: Has been noticed by family especially daughter . As per family this is baseline Mental status. CT and MRI brain with no acute finding will order vitamin B12 and folic acid level Qualifiers: Dementia type: unspecified type Dementia behavioral disturbance: without behavioral disturbance Qualified Code(s): F03.90 - Unspecified dementia without behavioral disturbance (9) DVT prophylaxis Current Visit: Yes Status: Acute - Time Spent With Patient Total time spent is greater than 50% in coordination of care (as documented) at patient's floor/unit and/or counseling patient: Greater than 35 minutes (Spent more than 35 minutes in patient care. Communication with nursing staff, daughter, neurologist.) - Subjective Interval history: Patient is still complaining of right leg pain and weakness. Patient had early childhood associate teacher and raised troponin now. Denies any active chest pain. Patient had history of CAD status post 3 stent 5 years ago and also left-sided endarterectomy. Patient is poor historian and take very termite inspector to recall the information and also evaluation in formation. As per patient he has chronic back pain and his primary care physician has been treating him on Neurontin and Lyrica for long time but not sure the duration exactly in 2 months back when change the PCP then new PCP is stopped these medicine all of sudden. Eventually patient is started to the rule out for body pain but mostly in back and diffuse abdomen. For last 3 weeks he noticed weakness in right lower extremity and has been prone to fall but did not fall as per patient. He denies tingling numbness in affected area. He did not seek further advice from PCP but came to ER yesterday with complaint of severe pain. Initially blood pressure was very high and he got treated for hypertensive urgency Patient denies fever chills nausea vomiting headache dizziness shortness of breath tingling numbness urinary bowel incontinence - Constitutional Vitals: Temp Pulse Resp BP Pulse Ox 98.4 F 68 18 145/71 98 08/17/17 11:02 08/17/17 13:00 08/17/17 11:02 08/17/17 13:00 08/17/17 11:02 Exam: General appearance: No acute distress, per son and place. Poor historian. No family at bedside therefore called his daughter on phone to get information. Head exam: Atraumatic Eye exam: EOMI, PERRLA ENT exam: Moist oral mucosa Neck nontender, supple Respiratory exam: Clear to auscultation bilaterally Cardiovascular exam: Regular rate and rhythm, no systolic murmur Abdominal exam: Soft, nontender, nondistended, positive bowel sounds Extremities exam: No calf tenderness, no pedal edema Present: Skin-no rash, warm, dry, intact Neurological exam: CN II-XII intact. Motor right lower extremity 2 x 5 otherwise 5 x 5 in rest of her extremities.. No facial droop. Normal speech. unable to walk independently due to right lower weakness Internal Medicine: Result - Labs CBC & Chem 7: 08/16/17 05:12 08/16/17 05:12 Labs: Cardiac Enzymes 08/17/17 Range/Units 06:52 Troponin I 0.07 H* (< 0.04) ng/mL - VTE Documentation of Mechanical Device: Intermittent pneumatic compression device Consult Discharge Plan - Plan Referrals: Chandrika Roman MD [Non-Partnered Physician] - 08/22/17 8:40 am
[2017-08-17 13:46] LABS: Basophils % 0.2 %; Eosinophils % 0.1 %; Hematocrit 48.1 % (37.5-50.1); Hemoglobin 16.4 g/dL (12.9-16.9); Immature Granulocytes % 0.7 % (0-4); Lymphocytes # 1.1 K/mcL (0.6-4.6); Lymphocytes % 9.8 %; Mean Corpuscular HGB Conc 34.1 g/dL (31.6-35.5); Mean Corpuscular Hemoglobin 29.5 pg (28.0-33.3); Mean Corpuscular Volume 86.7 fL (83.0-100.0); Mean Platelet Volume 11.2 fL (9.4-12.4); Monocytes # 0.2 K/mcL (0.0-1.3); Monocytes % 1.8 %; Platelet Count 307 K/mcL (140-400); Red Blood Count 5.55 M/mcL (4.19-5.50); Red Cell Distribution Width 12.3 % (11.5-14.5); Segmented Neutrophils % 87.4 %
[2017-08-17 13:58] LABS: Troponin I 0.08 ng/mL (< 0.04)
--- NOTE | 2017-08-17 14:29 | Cardiology Consult Note ---
Date of Encounter: 08/17/17 Time of Encounter: 14:25 Assessment and Plan (1) Elevated troponin Current Visit: Yes Status: Acute First 5 troponins were negative. Most recent 0.07, 0.08. Mild, flat troponin elevation in the setting of hypertensive urgency and a mild creatinine elevation. Patient did not complain of chest discomfort upon admission. ECG does not demonstrate any acute findings. Overall, patient presentation is not consistent with ACS. Recommend TTE. Continue to manage blood pressure and monitor creatinine. Unclear why he is not on aspirin, but he is on Plavix. I would recommend this be continued. Continue beta gilda therapy. Recommend statin therapy. We will start Lipitor. Further recommendations to follow results of TTE. Discussion w patient/family: The assessment and plan as outlined above was discussed with the patient and/or family members who expressed understanding and agreement. All questions were answered. Thank you for involving us in the care of your patient. Please call with any questions. History of Present Illness Consult date: 08/17/17 Requesting physician: Gabriela Sanabria Consult reason: elevated troponin Chief complaint: none History of present illness: Mr. Waters is a 66 year old male who is a very poor historian. Much of history was obtained from the chart. Per reports, patient has noticed progressive difficulty in walking and general weight loss. Incidentally, patient noted to have a blood pressure of 223/121 in the ER. He has been on a Cardene drip. Mild creatinine elevation also noted. Patient has had 7 troponin measurements since admission. The first 5 were negative. Most recently, 0.07 and 0.08. Per reports, patient has a history of CAD, prior PCI. Upon my evaluation, patient appeared to be comfortable. He was receiving an echocardiogram. No chest discomfort was reported. ECG reviewed - sinus rhythm, right bundle branch block, left anterior fascicular block. No acute ST or T-wave changes noted. Past Med Surg Social Fam HX - Past Medical History Medical history: arthritis, diabetes, hyperlipidemia, hypertension, myocardial infarction Additional medical history: cardiac stent x3, L endarterectomy Psychiatric history: no psych history - Past Surgical History Additional surgical history: skin cancer removal - Social History Smoking Status: Former smoker Smokeless Tobacco Status: No Alcohol use: none Drug use: none Medications and Allergies Amlodipine Besylate 10 mg PO DAILY 08/15/17 [History] Atenolol [Tenormin] 50 mg PO DAILY 08/15/17 [History] Clopidogrel [Plavix] 75 mg PO DAILY 08/15/17 [History] Insulin 08/15/17 [History] Lisinopril [Zestril] 20 mg PO BID 08/15/17 [History] Tizanidine HCl [Zanaflex] 4 - 8 mg PO HS 08/15/17 [History] cloNIDine HCl [CloNIDine HCl] 0.1 mg PO HS 08/15/17 [History] metFORMIN [Glucophage] 500 mg PO QID 08/15/17 [History] 3 Allergy/AdvReac Type Severity Reaction Status Date / Time No Known Allergies Allergy Verified 08/15/17 17:22 ROS unobtainable: due to mental status All Systems Review: The remainder of the systems were reviewed and are negative Physical Examination Vital Signs, Last 4 Hours Temp Pulse Resp BP Pulse Ox 08/17/17 14:00 74 165/76 08/17/17 13:00 68 145/71 08/17/17 12:00 69 158/72 08/17/17 11:45 71 08/17/17 11:02 98.4 F 67 18 167/71 98 08/17/17 11:00 70 167/71 General: Conversant, No Apparent Distress, Other HEENT: Atraumatic, Normocephaly, Mucus Membranes Moist Neck: No JVD Cardiac: Reg Rate and Rhythm, Normal S1 and S2, No Murmur Lungs: Normal Breath Sounds, No Wheeze, Rales, Rhonchi Neuro: Other (Responsive to questions, but generally confused.) Abdomen: Soft, Non-Tender Skin: No rashes noted on visualized skin Musculoskeletal: No Chest Wall Tenderness Extremities: No Clubbing, No Cyanosis Results 08/17/17 13:14 08/16/17 05:12 Lab Results 08/17/17 08/17/17 08/17/17 06:52 13:14 13:14 WBC 11.5 H Hgb 16.4 Hct 48.1 Plt Count 307 Troponin I 0.07 H* 0.08 H* - EKG Interpretation EKG results cardiology: personally reviewed Consult Discharge Plan - Plan Referrals: Chandrika Roman MD [Non-Partnered Physician] - 08/22/17 8:40 am
[2017-08-17 14:37] LABS: BUN/Creatinine Ratio 22 (6-26); Blood Urea Nitrogen 27 mg/dL (8-23); Calcium 9.7 mg/dL (8.6-10.3); Carbon Dioxide 21 mEq/L (23-29); Chloride 102 mEq/L (98-107); Glucose 366 mg/dL (70-105); Osmolality,Calculated 294 (280-300); Potassium 4.4 mEq/L (3.5-5.1); Sodium 132 mEq/L (136-145); eGFR For African Americans > 60 (> 60); eGFR For Non-African Americans 60 (> 60)
[2017-08-17 15:35] LABS: Folate 9.4 ng/mL (3.0-16.0)
[2017-08-17 19:42] LABS: Troponin I 0.07 ng/mL (< 0.04)
[2017-08-17] MEDS: tiZANidine 4 MG TABLET PO SCH (20:34)
[2017-08-17] MEDS: cloNIDine HCl 0.1 MG TABLET PO SCH (20:34)
[2017-08-17] MEDS: Melatonin 3 MG TABLET PO PRN (20:34)
[2017-08-18 02:01] LABS: Basophils % 0.2 %; Hematocrit 43.1 % (37.5-50.1); Hemoglobin 14.9 g/dL (12.9-16.9); Immature Granulocytes % 0.6 % (0-4); Lymphocytes # 0.8 K/mcL (0.6-4.6); Lymphocytes % 6.8 %; Mean Corpuscular HGB Conc 34.6 g/dL (31.6-35.5); Mean Corpuscular Hemoglobin 29.6 pg (28.0-33.3); Mean Corpuscular Volume 85.7 fL (83.0-100.0); Monocytes # 0.3 K/mcL (0.0-1.3); Monocytes % 2.2 %; Neutrophils # 10.5 K/mcL (1.6-8.9); Platelet Count 261 K/mcL (140-400); Red Blood Count 5.03 M/mcL (4.19-5.50); Red Cell Distribution Width 12.6 % (11.5-14.5); Segmented Neutrophils % 90.2 %
[2017-08-18 02:20] LABS: BUN/Creatinine Ratio 26 (6-26); Blood Urea Nitrogen 29 mg/dL (8-23); Calcium 9.3 mg/dL (8.6-10.3); Carbon Dioxide 24 mEq/L (23-29); Chloride 103 mEq/L (98-107); Glucose 342 mg/dL (70-105); Osmolality,Calculated 295 (280-300); Potassium 4.2 mEq/L (3.5-5.1); Sodium 133 mEq/L (136-145); eGFR For African Americans > 60 (> 60); eGFR For Non-African Americans > 60 (> 60)
[2017-08-18] MEDS ORDERED: *HR* Dextrose 50 % in Water (Syg) 50 ML SYRINGE IVP PRN (05:25)
[2017-08-18] MEDS ORDERED: Dextrose Gel 15 GM/37.5 ML TUBE PO PRN ×2 (05:25)
[2017-08-18] MEDS ORDERED: D5% in Water 1,000 ML IVC PRN (05:25)
[2017-08-18] MEDS ORDERED: Insulin LISPRO 300 UNITS/3 ML VIAL SQ SCH ×3 (05:30→11:13)
[2017-08-18] MEDS: *HR* Enoxaparin 40 MG/0.4 ML SYRINGE SQ SCH (06:08)
[2017-08-18] MEDS: Dexamethasone 4 MG/ML VIAL IVP SCH ×3 (06:08→23:00)
[2017-08-18] MEDS: Acetaminophen IV 1,000 MG/100 ML INFUS..BTL IVPB SCH ×4 (06:09→23:00)
[2017-08-18] MEDS: *HR* HYDROcodone/Acet 7.5/325 mg TABLET PO PRN (06:42)
[2017-08-18] MEDS: niCARdipine 40 MG/200 ML MLS IVC SCH (07:15)
[2017-08-18] MEDS: Gabapentin 100 MG CAPSULE PO SCH (07:47)
[2017-08-18] MEDS: traMADol 50 MG TABLET PO PRN ×2 (07:57→20:03)
[2017-08-18] MEDS: amLODIPine 5 MG TABLET PO SCH (07:57)
[2017-08-18] MEDS: Insulin LISPRO 300 UNITS/3 ML VIAL SQ SCH ×2 (11:42→16:36)
--- NOTE | 2017-08-18 11:45 | Cardiology Progress Note ---
Date of Encounter: 08/18/17 Time of Encounter: 11:43 Assessment and Plan (1) Elevated troponin Current Visit: Yes Status: Acute First 5 troponins were negative. Most recent 0.07, 0.08. Flat, adynamic troponin elevation in the setting of hypertensive urgency and a mild creatinine elevation. No chest pain today. TTE reviewed and demonstrates normal LV function, no segmental wall motion abnormalities. Presentation is not consistent with ACS. No further inpatient cardiac testing appears to be necessary at this time. Your medical management regarding hypertension, radiculopathy. Cardiology will sign off. Please call with any questions or concerns. Discussion w patient/family: The assessment and plan as outlined above was discussed with the patient and/or family members who expressed understanding and agreement. All questions were answered. Thank you for involving us in the care of your patient. Please call with any questions. Subjective Principal diagnosis: Hypertension Interval history: No new events reported overnight. Patient appears comfortable at the time of my evaluation. No chest pain reported. Blood pressure remains poorly controlled. Objective Vital Signs, Last 4 Hours Temp Pulse Resp BP Pulse Ox 08/18/17 11:29 98.0 F 72 18 189/86 98 08/18/17 08:02 87 General: Conversant, No Apparent Distress HEENT: Atraumatic, Normocephaly, Mucus Membranes Moist Neck: No JVD, Normal carotid pulses Cardiac: Reg Rate and Rhythm, Normal S1 and S2, No Murmur Lungs: Normal Breath Sounds, No Wheeze, Rales, Rhonchi Neuro: No focal deficits noted, Other (The patient is awake, seems generally confused.) Abdomen: Soft, Non-Tender Skin: No rashes noted on visualized skin Musculoskeletal: No Chest Wall Tenderness Extremities: No Clubbing, No Cyanosis, No Edema Results 08/18/17 01:29 08/18/17 01:29 Lab Results 08/17/17 08/17/17 08/17/17 13:14 13:14 13:14 WBC 11.5 H Hgb 16.4 Hct 48.1 Plt Count 307 Sodium 132 L Potassium 4.4 Chloride 102 Carbon Dioxide 21 L BUN 27 H Creatinine 1.21 Glucose 366 H Calcium 9.7 Troponin I 0.08 H* 08/17/17 08/18/17 08/18/17 18:54 01:29 01:29 WBC 11.7 H Hgb 14.9 D Hct 43.1 Plt Count 261 Sodium 133 L Potassium 4.2 Chloride 103 Carbon Dioxide 24 BUN 29 H Creatinine 1.11 Glucose 342 H Calcium 9.3 Troponin I 0.07 H* - Imaging and Cardiology Echo: report reviewed - EKG Interpretation EKG results cardiology: personally reviewed - VTE Documentation of Mechanical Device: Intermittent pneumatic compression device Consult Discharge Plan - Plan Referrals: Chandrika Roman MD [Non-Partnered Physician] - 08/22/17 8:40 am
--- NOTE | 2017-08-18 13:33 | Internal Med Progress Note ---
Date of Encounter: 08/18/17 Time of Encounter: 13:29 - Assessment and plan (1) Hypertensive urgency Current Visit: Yes Status: Acute Assessment and plan: Better blood pressure. Cardene drip stopped. Beta gilda dose changed 50 mg twice a day, continue clonidine, added EZEQUIEL inhibitor lisinopril 10 mg by mouth daily. Monitor blood pressure. (2) NSTEMI (non-ST elevated myocardial infarction) Current Visit: Yes Status: Acute Assessment and plan: Most likely related with hypertensive urgency. Portrait Painter's on board and not planning for any further cardiac workup. Echocardiogram with normal LV function and no segmental wall motion abnormalities. Continue No active chest pain but history of CAD status post 3 stent. Continue Plavix added beta gilda metoprolol 25 mg every 6 hours with hold parameters. (3) Abdominal pain Current Visit: Yes Status: Acute Assessment and plan: No nonspecific. No complaint of abdominal pain today. Lipase amylase normal. Urine analysis with no acute finding. CT abdomen and pelvis with no acute finding. Continue to monitor. Qualifiers: Abdominal location: generalized Qualified Code(s): R10.84 - Generalized abdominal pain (4) Acute kidney injury Current Visit: Yes Status: Acute Assessment and plan: Resolved. Possibly prerenal due to dehydration. Strict I&O's. stopped IV fluid as patient taking oral diet.Repeat BMP. (5) Weakness of right lower extremity Current Visit: Yes Status: Acute Assessment and plan: Less pain now. And improving motor strength of right lower extremity. Mild non -specific edema in the posterior soft tissue more on right side. Patient is responding to pain medicine therefore will continue same but change steroid to oral prednisone 40 mg daily. Progressively worse over 3 weeks but did not seek medical advice. No urinary or bowel incontinence. Patient also has lower back pain especially right side but no tenderness spine. Neurologist on board. Reviewed MRI done at [facility] in March 2017 with no radiological interpretation a test but appear lumbar spinal stitch stenosis at L4-5 I talked to daughter at phoneand she informed that patient got evaluated for a spine stenosis and was advise for medical management as it was told that surgery will make his problem only worse. Low-dose Neurontin 200 mg 3 times a day started ad will titrate up as needed. plan to d/c tomorrow if continue to improve. PT/OT consulted. Continue fall precaution. (6) Chronic low back pain Current Visit: Yes Status: Acute Assessment and plan: Low back pain with right side radiculopathy. Continue pain management IV Tylenol, hydrocodone, gabapentin and Zanaflex. Avoid nsaids due to acute kidney injury. Qualifiers: Back pain laterality: midline Sciatica presence: with sciatica Sciatica laterality: sciatica of right side Qualified Code(s): M54.41 - Lumbago with sciatica, right side; G89.29 - Other chronic pain (7) Weight loss, unintentional Current Visit: Yes Status: Acute Assessment and plan: Lost around 25 pound in last 2-3 months as per patient but no workup done. Normal TSH, normal PSA. Hemoccult test is still awaited- not passed the stool. laxative today prn.. Consulted coat padder. Patient is chronic a smoker quit 5 years ago with intermittent cough therefore CT chest with Scattered small nodular densities , largest measures approximate 3 x 4 mm. Nonspecific nodule along the posterior inferior pleural margin in the right lung base- needs to f/ u with PCP lung base, . PSA, TSH normal. CT abdomen with no acute finding. consult coat padder as well (8) Dementia Current Visit: Yes Status: Acute Assessment and plan: Has been noticed by family especially daughter . As per family this is baseline Mental status. CT and MRI brain with no acute finding will order vitamin B12 and folic acid level- normal. social work nurse on board for d/c and placement plan. Qualifiers: Dementia type: unspecified type Dementia behavioral disturbance: without behavioral disturbance Qualified Code(s): F03.90 - Unspecified dementia without behavioral disturbance (9) DVT prophylaxis Current Visit: Yes Status: Acute Assessment and plan: SCDs - Time Spent With Patient Total time spent is greater than 50% in coordination of care (as documented) at patient's floor/unit and/or counseling patient: 25 - 35 minutes - Subjective Interval history: better leg pain and weakness. constipation. Denies any active chest pain. Patient had history of CAD status post 3 stent 5 years ago and also left-sided endarterectomy. Patient is poor historian . As per patient he has chronic back pain and his primary care physician has been treating him on Neurontin and Lyrica for long time but not sure the duration exactly in 2 months back when change the PCP then new PCP is stopped these medicine abruptly. Eventually patient developed generalized body pain but mostly in back and diffuse abdomen. For last 3 weeks he noticed weakness in right lower extremity and has been prone to fall but did not fall as per patient but he fell few times and was found on the floor as per family but did not hit the head. He denies tingling numbness in affected area. He did not seek further advice from PCP but came to ER yesterday with complaint of severe pain. Initially blood pressure was very high and he got treated for hypertensive urgency Patient denies fever chills nausea vomiting headache dizziness shortness of breath tingling numbness urinary bowel incontinence - Constitutional Vitals: Temp Pulse Resp BP Pulse Ox 98.0 F 67 18 189/86 98 08/18/17 11:29 08/18/17 11:53 08/18/17 11:29 08/18/17 11:29 08/18/17 11:29 Exam: General appearance: No acute distress, A&O X 3 Head exam: Atraumatic Eye exam: EOMI, PERRLA ENT exam: Moist oral mucosa Neck nontender, supple Respiratory exam: Clear to auscultation bilaterally Cardiovascular exam: Regular rate and rhythm, no systolic murmur Abdominal exam: Soft, nontender, nondistended, positive bowel sounds Extremities exam: No calf tenderness, no pedal edema Present: Skin-no rash, warm, dry, intact Neurological exam: CN II-XII intact. Right lower extremity 3 x 5 otherwise 5 x 5 in rest of further extremities. No facial droop. Normal speech. Walking with assistance Internal Medicine: Result - Labs CBC & Chem 7: 08/18/17 01:29 08/18/17 01:29 Labs: Short CBC 08/17/17 08/18/17 Range/Units 13:14 01:29 WBC 11.5 H 11.7 H (4.3-11.1) K/mcL Hgb 16.4 14.9 D (12.9-16.9) g/dL Hct 48.1 43.1 (37.5-50.1) % Plt Count 307 261 (140-400) K/mcL Neutrophils # 10.0 H 10.5 H (1.6-8.9) K/mcL BMP 08/17/17 08/18/17 13:14 01:29 Sodium 132 L 133 L Potassium 4.4 4.2 Chloride 102 103 Carbon Dioxide 21 L 24 BUN 27 H 29 H Creatinine 1.21 1.11 Glucose 366 H 342 H Calcium 9.7 9.3 Cardiac Enzymes 08/17/17 08/17/17 Range/Units 13:14 18:54 Troponin I 0.08 H* 0.07 H* (< 0.04) ng/mL - Impressions Impressions Chest CT 08/17/17 08:00 IMPRESSION: Scattered small nodular densities as described. The largest measures approximate 3 x 4 mm. Nonspecific nodule along the posterior inferior pleural margin in the right lung base, axial image 132. Although this could represent a nerve tumor along the rib margin, other etiology should be excluded and follow-up imaging is recommended. RECOMMENDATIONS: Fleischner Society guidelines for follow-up and management of incidentally detected pulmonary nodules: Single Solid Nodule: Nodule size less than 6 mm In a low-risk patient, no routine follow-up. In a high-risk patient, optional CT at 12 months. Nodule size equals 6-8 mm In a low-risk patient, CT at 6-12 months, then consider CT at 18-24 months. In a high-risk patient, CT at 6-12 months, then CT at 18-24 months. Nodule size greater than 8 mm In a low-risk patient, consider CT at 3 months, PET/CT, or tissue sampling. In a high-risk patient, consider CT at 3 months, PET/CT, or tissue sampling. Multiple Solid Nodules: Nodule size less than 6 mm In a low-risk patient, no routine follow-up. In a high-risk patient, optional CT at 12 months. Nodule size equals 6-8 mm In a low-risk patient, CT at 3-6 months, then consider CT at 18-24 months. In a high-risk patient, CT at 3-6 months, then CT at 18-24 months. Nodule size greater than 8 mm In a low-risk patient, CT at 3-6 months, then consider CT at 18-24 months. In a high-risk patient, CT at 3-6 months, then CT at 18-24 months. - Low risk patients include individuals with minimal or absent history of smoking and other known risk factors. - High risk patients include individuals with a history or smoking or known risk factors. Radiology 2017 http://pubs.rsna.org/doi/full/10.1148/radiol.[email or web address] D/ / Gera Rojas / Gera Rojas Interpreting Provider: Gera Rojas Lumbar Spine MRI 08/17/17 11:58 IMPRESSION: There is nonspecific mild edema in the posterior soft tissues, right greater than left. This was not definitively present on the prior examination. Etiology is unclear and may represent sequela of muscle spasm are nonspecific myositis. Degenerative disc disease in the lumbar spine as described. Findings L4 appear minimally increased. Otherwise, findings are stable D/ / Gera Rojas / Gera Rojas Interpreting Provider: Gera Rojas Sacrum/Coccyx MRI 08/17/17 11:58 IMPRESSION: 1. Mild bilateral sacroiliac joint degenerative changes. 2. Mild nonspecific edema within the lower paraspinal musculature compatible with denervation versus low-grade strains. D/ / Emre Meehan MD / Emre Meehan MD Interpreting Provider: Emre Meehan MD Echocardiogram 08/17/17 12:45 Impressions: LVEF 60-65%. Normal LV chamber size and function. Mild asymmetric hypertrophy of the basal septum. Very mild LVOT gradient of 9 mmHg. Mild left ventricular diastolic dysfunction. Atypical septal motion consistent with bundle branch block. Normal right ventricular structure and function. No evidence of pulmonary hypertension. No significant valvular dysfunction. Left Ventricular Wall Motion: Rest Echo Findings All wall segments showed normal motion. Findings: Study Quality * Technically adequate exam. ECG Findings * Normal sinus rhythm. Left Ventricle * LVEF 60-65%. * Normal LV chamber size and function. * Mild asymmetric hypertrophy of the basal septum. * Very mild LVOT gradient of 9 mmHg. * Mild left ventricular diastolic dysfunction. * Atypical septal motion consistent with bundle branch block. Right Ventricle * Normal right ventricular structure and function. Left Atrium * Moderately dilated left atrium. Right Atrium * Mildly dilated right atrium. Aortic Valve * Trileaflet aortic valve. * Mildly sclerotic aortic valve leaflets. * No aortic regurgitation. * No aortic stenosis. Mitral Valve * Mild mitral annular calcification * No mitral regurgitation. * No mitral stenosis. Tricuspid Valve * Normal tricuspid valve structure and function. * Trace tricuspid regurgitation. * No evidence of pulmonary hypertension. Pulmonic Valve * Normal pulmonic valve structure and function. * No pulmonic regurgitation. Aorta * Normally sized aortic root. Pericardium * The pericardium appears normal. IVC * Normal IVC dimensions and inspiratory collapse. Pulmonary Artery * Normal visualized portions of the main pulmonary artery. - VTE Documentation of Mechanical Device: Intermittent pneumatic compression device Consult Discharge Plan - Plan Referrals: Chandrika Roman MD [Non-Partnered Physician] - 08/22/17 8:40 am
[2017-08-18] MEDS: Gabapentin 300 MG CAPSULE PO SCH ×2 (14:50→20:03)
--- NOTE | 2017-08-18 15:30 | Neurology Progress Note ---
Date of Encounter: 08/18/17 Time of Encounter: 15:28 Assessment and Plan (1) Weakness of right lower extremity Current Visit: Yes Status: Acute (2) Chronic low back pain Current Visit: Yes Status: Acute Qualifiers: Back pain laterality: midline Sciatica presence: with sciatica Sciatica laterality: sciatica of right side Qualified Code(s): M54.41 - Lumbago with sciatica, right side; G89.29 - Other chronic pain (3) Lumbar spinal stenosis Current Visit: Yes Status: Acute I believe that the L4-L5 lumbar stenosis may be contributing to his right leg weakness. My recommendation would be for him to follow up with me in my office a as an outpatient for an EMG of the right lower extremity. This would help me to determine whether or not radiculopathy or lumbar stenosis is the largest contributing factor. At this point I am not willing to say that his condition is not amendable to surgery as it very well could be. I will reevaluate at your request. Qualifiers: Qualified Code(s): M48.061 - Spinal stenosis, lumbar region without neurogenic claudication Subjective Principal diagnosis: Hypertension Interval history: The chart was reviewed, the patient was seen and examined personally. He has some improved range of motion and strength of the right lower extremity. He also feels that the pain has been decreased. He has not been up walking it but states that he is waiting for the nurses to get him up shortly. I did review the MRI of the lumbar spine which does reveal moderate to severe lumbar stenosis at the L4-L5 level. Maintains normal sphincter function. Objective - Constitutional Vitals: Temp Pulse Resp BP Pulse Ox 98.0 F 67 18 189/86 98 08/18/17 11:29 08/18/17 11:53 08/18/17 11:29 08/18/17 11:29 08/18/17 11:29 - Neurological Exam Motor Examination: Present: other (Normal strength bulk and tone of both upper extremities.) Motor examination - right side: 3/5: hip flexors, quadriceps, 4/5: tibialis Anterior, toe extension (EHL), 5/5: deltoids, biceps, triceps, school guidance counselor, plantarflexion Motor examination - left side: 3/5: quadriceps, 5/5: deltoids, biceps, triceps, wrist flexion, wrist extension, hip flexors, school guidance counselor, tibialis Anterior, toe extension (EHL), plantarflexion Sensation intact: Present: intact, light touch Mental Status Examination: Present: awake, alert, oriented to person, oriented to place, oriented to time, follows commands appropriately, answers questions appropriately, no agnosia, no aphasia, no aproxia Cranial nerve examination: Present: PERRL, EOMI, visual hawley intact, sensory to face intact, no facial asymmetry is present, no dysarthria, hearing is intact symmetrically, soft palate elevates bilaterally upon phonation, flexes SCM and trapezius muscles symmetrically with full power, tongue protrudes midline, no atrophy or facial fasiculations present - VTE Documentation of Mechanical Device: Intermittent pneumatic compression device Results - Laboratory Findings CBC and BMP: 08/18/17 01:29 08/18/17 01:29 Abnormal lab findings: Abnormal lab results WBC 11.7 K/mcL (4.3-11.1) H 08/18/17 01:29 Neutrophils # 10.5 K/mcL (1.6-8.9) H 08/18/17 01:29 Sodium 133 mEq/L (136-145) L 08/18/17 01:29 BUN 29 mg/dL (8-23) H 08/18/17 01:29 Glucose 342 mg/dL (70-105) H 08/18/17 01:29 POC Glucose 228 mg/dL (70-99) H 08/18/17 07:20 Alkaline Phosphatase 108 Units/L (34-104) H 08/15/17 12:28 Troponin I 0.07 ng/mL (< 0.04) H* 08/17/17 18:54 Triglycerides 158 mg/dL (< 150) H 08/16/17 05:12 LDL Cholesterol, Calc 126 mg/dL (0-99) H 08/16/17 05:12 VLDL Cholesterol, Calc 32 mg/dL (< 31) H 08/16/17 05:12 HDL Cholesterol 33 mg/dL (40-59) L 08/16/17 05:12 Cholesterol/HDL Ratio 5.8 (0-4.9) H 08/16/17 05:12 Lipase 8 Units/L (11-82) L 08/16/17 12:51 Urine Protein 30 mg/dL (Neg-Trace) H 08/15/17 15:00 Ur Leukocyte Esterase Trace (Negative) H 08/15/17 15:00 Ur Culture Indicated? YES (NO) A 08/15/17 15:00 Consult Discharge Plan - Plan Referrals: Chandrika Roman MD [Non-Partnered Physician] - 08/22/17 8:40 am
[2017-08-18] MEDS: Melatonin 3 MG TABLET PO PRN (20:03)
[2017-08-18] MEDS: cloNIDine HCl 0.1 MG TABLET PO SCH (20:03)
[2017-08-18] MEDS: tiZANidine 4 MG TABLET PO SCH (20:03)
[2017-08-19] MEDS: niCARdipine 40 MG/200 ML MLS IVC SCH (02:36)
[2017-08-19] MEDS: traMADol 50 MG TABLET PO PRN (03:43)
[2017-08-19] MEDS: Dexamethasone 4 MG/ML VIAL IVP SCH (05:40)
[2017-08-19] MEDS: *HR* Enoxaparin 40 MG/0.4 ML SYRINGE SQ SCH (05:40)
[2017-08-19] MEDS: Acetaminophen IV 1,000 MG/100 ML INFUS..BTL IVPB SCH ×2 (05:40→11:25)
[2017-08-19] MEDS: Gabapentin 300 MG CAPSULE PO SCH ×2 (08:26→16:32)
[2017-08-19] MEDS: amLODIPine 5 MG TABLET PO SCH (08:27)
[2017-08-19] MEDS: Insulin LISPRO 300 UNITS/3 ML VIAL SQ SCH ×2 (08:28→11:27)
[2017-08-19 08:34] LABS: Hematocrit 47.5 % (37.5-50.1); Hemoglobin 16.2 g/dL (12.9-16.9); Mean Corpuscular HGB Conc 34.1 g/dL (31.6-35.5); Mean Corpuscular Hemoglobin 29.2 pg (28.0-33.3); Mean Corpuscular Volume 85.7 fL (83.0-100.0); Mean Platelet Volume 11.1 fL (9.4-12.4); Platelet Count 275 K/mcL (140-400); Red Blood Count 5.54 M/mcL (4.19-5.50); Red Cell Distribution Width 12.7 % (11.5-14.5)
[2017-08-19] MEDS ORDERED: cloNIDine HCl 0.1 MG TABLET PO SCH (09:00)
[2017-08-19] MEDS ORDERED: predniSONE 20 MG TABLET PO SCH (09:00)
[2017-08-19 09:21] LABS: BUN/Creatinine Ratio 30 (6-26); Blood Urea Nitrogen 34 mg/dL (8-23); Calcium 9.2 mg/dL (8.6-10.3); Chloride 102 mEq/L (98-107); Glucose 275 mg/dL (70-105); Osmolality,Calculated 297 (280-300); Potassium 3.9 mEq/L (3.5-5.1); Sodium 135 mEq/L (136-145); eGFR For African Americans > 60 (> 60); eGFR For Non-African Americans > 60 (> 60)
[2017-08-19 10:54] LABS: Carbon Dioxide 22 mEq/L (23-29)
[2017-08-19 11:13] VITALS: BP 136/75
[2017-08-19] MEDS ORDERED: Insulin LISPRO 300 UNITS/3 ML VIAL SQ SCH ×2 (14:34)
[2017-08-19] MEDS ORDERED: Acetaminophen 325 MG TABLET PO PRN (14:37)
--- NOTE | 2017-08-19 15:54 | Discharge Summary ---
- NOTES TO OUTPATIENT PROVIDER Notes to Outpatient Provider: Follow with PCP-monitoring of blood pressure, blood glucose level. monitor CT chest for possible nodule. Glyburide can be stopped after tapering steroid course completed. home health care for nursing, PT or OT. Fall risk precaution. Follow-up with neurologist in 2 week-EMG study. Orders not resulted at time of discharge: Pending orders 08/16/17 11:49 Stool guiac [Occult Blood,Stool] [BF] Routine 08/19/17 01:24 Hgb A1C AM 0400 Date of Encounter: 08/19/17 Time of Encounter: 15:49 - Discharge Diagnosis (1) Hypertensive urgency Priority: Primary Status: Acute Assessment and Plan: Better blood pressure. Will discharge patient on home medicine atenolol, lisinopril 20 mg daily and increased dose of clonidine 0.1 mg twice a day and amlodipine. At the time of discharge blood pressure is well controlled therefore advised to continue same medicine but needs close monitoring with the help of PCP. talked discharge plan with his daughter. initially Cardene drip was started but stopped. (2) Weakness of right lower extremity Priority: Primary Status: Acute Assessment and Plan: L4-5 lumbar he stenosis with low back pain and right lower extremity radiculopathy. Less pain now. And improving motor strength of right lower extremity. Mild non-specific edema in the posterior soft tissue more on right side. Patient is responding to steroid, Neurontin, zanaflex therefore will continue to taper down his steroid on OPD basis. neurologist was consulted and his recommendation to follow up withhim outpatient for an EMG of the right lower extremity. This would help to determine whether or not radiculopathy or lumbar stenosis is the largest contributing factor. (3) Acute kidney injury Priority: Primary Status: Acute Assessment and Plan: Resolved. Possibly prerenal due to dehydration. (4) Weight loss, unintentional Priority: Secondary Status: Acute Assessment and Plan: Lost around 25 pound in last 2-3 months as per patient but no workup done. Normal TSH, normal PSA. Patient may need malignancy workup on OPD basis with the help of PCP such as colonoscope he etc. Consulted event attendant. Patient is chronic a smoker quit 5 years ago with intermittent cough therefore CT chest with Scattered small nodular densities , largest measures approximate 3 x 4 mm. Nonspecific nodule along the posterior inferior pleural margin in the right lung base- needs to f/u with PCP PSA, TSH normal. CT abdomen with no acute finding. (5) Dementia Priority: Secondary Status: Acute Assessment and Plan: Patient get intermittent confusion psychosis and some concern of dementia. As per family this is baseline Mental status. CT and MRI brain with no acute finding will order vitamin B12 and folic acid level- normal. social media content specialist consulted and okay to discharge patient on home health care. Qualifiers: Dementia type: unspecified type Dementia behavioral disturbance: without behavioral disturbance Qualified Code(s): F03.90 - Unspecified dementia without behavioral disturbance Code(s): F03.90 - Unspecified dementia without behavioral disturbance SNOMED Code(s): 55052449 (6) Elevated troponin Priority: Secondary Status: Acute Assessment and Plan: No active chest pain. Most likely related with hypertensive urgency. Cutter Apprentice Hand's on board and not planning for any further cardiac workup. Echocardiogram with normal LV function and no segmental wall motion abnormalities. .history of CAD status post 3 stent. Continue home medicine. (7) Diabetes mellitus Priority: Secondary Status: Chronic Assessment and Plan: Blood glucose has been running high due to steroid use. Not tapering down by steroid therefore hopeful for better control of blood glucose level. Patient can continue metformin at home. I offered for sliding a scale insulin but he does not seem appropriate for patient to take it therefore I added glimepiride 1 mg daily with the instruction to follow blood glucose level and is stopped if any concern of low blood glucose level. Follow-up with PCP Qualifiers: Diabetes mellitus type: type 2 Diabetes mellitus detention insulin use: without terminal gauger use Diabetes mellitus complication status: without complication Qualified Code(s): E11.9 - Type 2 diabetes mellitus without complications Hospital course: Mr. Waters is a 66 year old male patient got admitted for hypertensive urgency and right lower extremity pain with lower back pain. Initially Cardene drip was restarted. MRI pelvis a spine with concern of edema on right lumbar a spine with L4-5 his stenosis. Neurologist was consulted. High-dose prednisone was restarted in eventually started to taper down. Neurontin low-dose was restarted and titrated up. Initially hydrocodone was restarted but patient did not require eventually. Please see detail in the diagnosis part of discharge summary. At the time of discharge patient is able to ambulate independently, better blood pressure control, oral intake tolerating. Physiotherapist evaluated and okay to discharge home with home health care. fairing worker also okay to discharge patient home with the above instruction. Discharge discussed with: patient, family, nurse, social work, case management, jd edwards consultant - Time Spent with Patient Total time spent providing and/or coordinating discharge services: Greater than 30 minutes - Discharge Medications Home Medications: Amlodipine Besylate 10 mg PO DAILY 08/15/17 [History] Atenolol [Tenormin] 50 mg PO DAILY 08/15/17 [History] Clopidogrel [Plavix] 75 mg PO DAILY 08/15/17 [History] Insulin 08/15/17 [History] Lisinopril [Zestril] 20 mg PO BID 08/15/17 [History] Tizanidine HCl [Zanaflex] 4 - 8 mg PO HS 08/15/17 [History] metFORMIN [Glucophage] 500 mg PO QID 08/15/17 [History] Gabapentin [Neurontin] 300 mg PO TID #90 capsule 08/19/17 [Rx] Glimepiride [Amaryl] 1 mg PO DAILY #15 tablet 08/19/17 [Rx] cloNIDine HCl [CloNIDine HCl] 0.1 mg PO BID #60 tablet 08/19/17 [Rx] predniSONE [PredniSONE] 40 mg PO DAILY #10 tablet 08/19/17 [Rx] Allergies/Adverse Reactions: 3 Allergy/AdvReac Type Severity Reaction Status Date / Time No Known Allergies Allergy Verified 08/15/17 17:22 Date of admission: 08/15/17 18:31 Primary care physician: PCP NONE Consults: 08/15/17 18:36 Consult to Physical Therapy [CONS] Routine Comment: Evaluate, develop and implement POC Reason for Consult: Ataxia Does patient have active BEDREST order?: No Is patient medically & hemodynamically stable?: Yes 08/16/17 12:09 Consult to Nutrition [CONS] Routine Comment: Consulting Provider: NUTRITION Reason for Dietary Consult: Diet Education Other 08/17/17 13:26 Consult to Cardiology [CONS] Stat Comment: Consulting Provider: Cardiology [place] Reason for Consult: Raised troponin Call Completed: Yes 08/18/17 10:33 Consult to Carbonation Tester [CONS] Routine Reason for SW Consult: Discharge plan - Constitutional Vitals: Temp Pulse Resp BP Pulse Ox 97.4 F L 58 18 136/75 96 08/19/17 11:09 08/19/17 11:09 08/19/17 11:09 08/19/17 11:09 08/19/17 11:09 Exam: General appearance: No acute distress, A&O X 2 Head exam: Atraumatic Eye exam: EOMI, PERRLA ENT exam: Moist oral mucosa Neck nontender, supple Respiratory exam: Clear to auscultation bilaterally Cardiovascular exam: Regular rate and rhythm Abdominal exam: Soft, nontender, nondistended, positive bowel sounds Extremities exam: No calf tenderness, no pedal edema Present: Neurological exam: CN II-XII intact, no focal deficits. No facial droop. Normal speech. . Initially take some support when he get down from the bed but after balancing his body he is able to walk properly - Patient Status Disposition: Home Health Service Condition: Fair Functional capacity at discharge: uses cane/walker Overall status at discharge: patient is progressing back to baseline - Discharge Instructions Follow Up With: Chandrika Roman MD [Non-Partnered Physician] - 08/22/17 8:40 am - Diet and Activity Activity: as per physical therapy Diet: diabetic diet, low salt diet - VTE Documentation of Mechanical Device: Intermittent pneumatic compression device
--- NOTE | 2017-08-19 16:27 | Physician Discharge Referral ---
Home Health/Hosp Referral Info Transfer to: Home Health Provider in Charge Post Discharge: PCP - Diagnosis (1) Hypertensive urgency Priority: Primary Status: Acute (2) Weakness of right lower extremity Priority: Primary Status: Acute (3) Acute kidney injury Priority: Primary Status: Acute (4) Weight loss, unintentional Priority: Secondary Status: Acute (5) Dementia Priority: Secondary Status: Acute (6) Elevated troponin Priority: Secondary Status: Acute (7) Diabetes mellitus Priority: Secondary Status: Chronic - Respiratory Orders Smoking Cessation: Smoking cessation has been advised. For more information, call the [place] Tobacco Quit Line at 5-325-YCDI-NOW. - Services Needed Following services are medically necessary services: Nursing, Physical Therapy, Occupational Therapy - Transfer Medications Prescriptions: cloNIDine HCl [CloNIDine HCl] 0.1 mg PO BID #60 tablet Gabapentin [Neurontin] 300 mg PO TID #90 capsule Glimepiride [Amaryl] 1 mg PO DAILY #15 tablet predniSONE [PredniSONE] 40 mg PO DAILY #10 tablet Home Medications: Amlodipine Besylate 10 mg PO DAILY 08/15/17 [History] Atenolol [Tenormin] 50 mg PO DAILY 08/15/17 [History] Clopidogrel [Plavix] 75 mg PO DAILY 08/15/17 [History] Insulin 08/15/17 [History] Lisinopril [Zestril] 20 mg PO BID 08/15/17 [History] Tizanidine HCl [Zanaflex] 4 - 8 mg PO HS 08/15/17 [History] metFORMIN [Glucophage] 500 mg PO QID 08/15/17 [History] Gabapentin [Neurontin] 300 mg PO TID #90 capsule 08/19/17 [Rx] Glimepiride [Amaryl] 1 mg PO DAILY #15 tablet 08/19/17 [Rx] cloNIDine HCl [CloNIDine HCl] 0.1 mg PO BID #60 tablet 08/19/17 [Rx] predniSONE [PredniSONE] 40 mg PO DAILY #10 tablet 08/19/17 [Rx] Allergies/Adverse Reactions: 3 Allergy/AdvReac Type Severity Reaction Status Date / Time No Known Allergies Allergy Verified 08/15/17 17:22 Certification: Further, I certify that my clinical findings support that this patient is homebound (i.e. absences from home require considerable and taxing effort and are for medical reasons or nondenominational services or infrequently or short duration when for other reasons) because: Homebound Reason: Patient requires assistance of a person or device to safely leave home Attestation: My signature below is to certify that this patient is under my care and that I, or nurse practitioner, or a physician's hotel assistant general manager working with me, has a face-to -face encounter with this patient.
[2017-08-20 00:22] LABS: Estimated Average Glucose 203 mg/dl; Hemoglobin A1C 8.7 %
--- NOTE | 2017-08-20 16:50 | Electrocardiograph Report ---
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
== END 2017-08-19 17:18 | disposition home health service (06) | DRG 281 ==
LOC: EMEROO 11:58 → 2ANU 11:58 → 2NNU 18:30
PROVIDERS: ADMIT Internal Medicine; ATTEND Internal Medicine

== ENCOUNTER 2018-01-13 15:51 | Inpatient (IN) ==
[2018-01-13] MEDS ORDERED: Gadolinium Contrast Agent (WT Based) IV PRN (16:02)
[2018-01-13] MEDS ORDERED: Ondansetron 4 MG/2 ML VIAL IVP ONE (16:10)
[2018-01-13] MEDS ORDERED: *HR* HYDROmorphone (PF) 1 MG/ML SYRINGE IVP ONE ×2 (16:10→18:29)
[2018-01-13] MEDS: 0.9 % Sodium Chloride 1,000 ML IVC SCH (16:25)
--- NOTE | 2018-01-13 17:11 | Emergency Department Note ---
Disposition Clinical Impression: Cauda equina compression Leg weakness Qualifiers: Laterality: unspecified laterality Qualified Code(s): R29.898 - Other symptoms and signs involving the musculoskeletal system Back pain Qualifiers: Back pain location: back pain in unspecified location Chronicity: acute Back pain laterality: unspecified Qualified Code(s): M54.9 - Dorsalgia, unspecified Spinal stenosis Qualifiers: Spinal region: unspecified Qualified Code(s): M48.00 - Spinal stenosis, site unspecified Disposition: Admitted As Inpatient Condition: Good Referrals: NONE,PCP [Primary Care Provider] - Forms: ED Satisfaction Letter Time of Disposition: 20:55 General Adult HPI - General Chief complaint: ED Back Pain/Injury Stated complaint: back pain Time Seen by Provider: 01/13/18 15:55 Source: patient Limitations: no limitations Nursing Notes Reviewed: Yes Vital Signs Reviewed: Yes - History of Present Illness HPI Narrative: 67-year-old male presents emergency department for evaluation of bilateral leg weakness. Patient presents as a referral from neurology Dr. Almazan who evaluated the patient today after he was sent from nursing facility for this persistently worsening leg weakness. Patient has a history of chronic back pain to his lumbar spine which is why he is currently at the nursing facility. He was evaluated in the office by Dr. Almazan to completed a neurologic exam which included a decreased rectal tone. Patient admits to episodes of bowel incontinence that is new. However he believes this is more functional as the nursing staff is not as responsive to when he needs to go. He denies any other complaints such as chest pain, shortness of breath, fever, cough, congestion. He denies any recent injury or trauma. Patient was sent here for MRI imaging of lumbar spine to evaluate for possible cauda equina. Pain Scale: 9 - Related Data Home Medications Medication Instructions Recorded Confirmed Amlodipine Besylate 10 mg PO DAILY 08/15/17 08/15/17 Atenolol [Tenormin] 50 mg PO DAILY 08/15/17 08/15/17 Clopidogrel [Plavix] 75 mg PO DAILY 08/15/17 08/15/17 Insulin 08/15/17 Lisinopril [Zestril] 20 mg PO BID 08/15/17 08/15/17 Tizanidine HCl [Zanaflex] 4 - 8 mg PO HS 08/15/17 08/15/17 metFORMIN [Glucophage] 500 mg PO QID 08/15/17 08/15/17 Previous Rx's Medication Instructions Recorded Gabapentin [Neurontin] 300 mg PO TID #90 capsule 08/19/17 Glimepiride [Amaryl] 1 mg PO DAILY #15 tablet 08/19/17 cloNIDine HCl [CloNIDine HCl] 0.1 mg PO BID #60 tablet 08/19/17 predniSONE [PredniSONE] 40 mg PO DAILY #10 tablet 08/19/17 Allergies Allergy/AdvReac Type Severity Reaction Status Date / Time No Known Allergies Allergy Verified 08/15/17 17:22 All systems ED: reviewed and negative except as stated. Review of Systems: As Per HPI Constitutional: Reports: weakness. Denies: fever ENT ED: Denies: congestion Cardiovascular: Denies: chest pain Respiratory: Denies: cough, dyspnea Gastrointestinal: Denies: abdominal pain, nausea, vomiting, diarrhea Genitourinary: Denies: dysuria Musculoskeletal: Reports: back pain Integumentary: Denies: rash, abrasion Neurological: Reports: weakness, numbness. Denies: headache, paresthesias Endocrine: Denies: fatigue Past Medical History - Past Medical History Attestation: Yes The following information was validated with the patient. Source: patient Medical history: Reports: arthritis, diabetes, hyperlipidemia, hypertension, myocardial infarction, other Psychiatric history: Reports: anxiety, depression - Social History Smoking Status: Former smoker Smokeless Tobacco Status: No Alcohol use: Reports: none Drug use: Reports: none Physical Exam - General Limitations: no limitations General appearance: alert, in no apparent distress - Head Head exam: atraumatic, normocephalic, normal inspection - Eye Eye exam: Present: normal appearance, PERRL, EOMI - ENT ENT exam: normal exam, normal oropharynx, mucous membranes moist - Neck Neck exam: Present: normal inspection, full ROM, trachea midline - Chest Chest inspection: Present: normal inspection, symmetric chest wall rise - Respiratory Respiratory exam: Present: normal lung sounds bilaterally - Cardiovascular Cardiovascular exam: Present: regular rate, normal rhythm, normal heart sounds. Absent: systolic murmur, diastolic murmur - Abdominal Exam Abdominal exam: Present: soft, Non-Tender, normal bowel sounds. Absent: tenderness, distention, guarding, rebound, rigidity - Rectal Exam Rectal exam: Present: other (Reported decreased rectal tone by neurologist evaluation earlier today) - Expanded Lower Extremity Exam Hip/Pelvis exam: Present: normal inspection, full ROM Upper leg exam: Present: normal inspection, full ROM Knee exam: Present: normal inspection, full ROM Lower leg exam: Present: normal inspection, full ROM Ankle exam: Present: normal inspection, full ROM Foot/toe exam: Present: normal inspection, full ROM Neurovascular/Tendon exam: Absent: motor deficit, sensory deficit, tendon deficit - Back Exam Back exam: Present: vertebral tenderness (Lumbar) - Neurological Exam Neurological exam: Present: alert, oriented X3 - Expanded Neurological Exam Patient oriented to: Present: person, place, time Speech: Present: fluid speech Motor strength - LUE: 5/5 Motor strength - RUE: 5/5 Motor strength - LLE: 4/5 Motor strength - RLE: 4/5 Sensory exam upper extremity: light touch: Normal Sensory exam lower extremity: light touch: Normal Coma Scale Eye Opening: Spontaneous Coma Scale Motor Response: Obeys Commands Coma Scale Verbal Response: Oriented Coma Scale Total: 15 - Psychiatric Psychiatric exam: Present: normal affect, normal mood - Skin Skin exam: Present: warm, dry, intact, normal color. Absent: rash, cyanosis, diaphoresis Course Course Narrative: Patient presented to the emergency department from neurologist office with concern for cauda equina. MRI shows severe spinal stenosis with signal abnormality. Plan for admission for cauda equina. Will consult spinal surgery. Patient's pain has been controlled with Dilaudid. - Consultations Consultation #1: Consulted Dr. Packer, typewriters functional tester spinal surgeon, recommend admission to medicine and will consult on the floor for possible decompression tomorrow. He requests basic labs for cardiac clearance. No immediate surgery at this time despite progressive leg weakness and decreased rectal tone. Does not recommend steroids at this time as it has not shown to be clinically effective. Time: 20:53 Consultation #2: Spoke with on-call hospitalist jaylyn Clark to admit for severe spinal stenosis on MRI concern for cauda equina syndrome. No further orders at this time Vital Signs Temperature 97.7 F 01/13/18 16:06 Pulse Rate 95 01/13/18 16:06 Respiratory Rate 16 01/13/18 16:06 Blood Pressure 94/66 01/13/18 16:06 O2 Sat by Pulse Oximetry 100 01/13/18 16:06 Temperature 97.7 F 01/13/18 16:06 Pulse Rate 91 01/13/18 21:31 Respiratory Rate 16 01/13/18 21:31 Blood Pressure 132/70 01/13/18 21:31 O2 Sat by Pulse Oximetry 99 01/13/18 21:31 Oxygen Delivery Oxygen Delivery Room Air Medical Decision Making - MDM Narrative Medical decision making narrative: Patient was discussed with my attending physician who agrees with ED management and final disposition. They independently evaluated the patient. Please refer to their attestation to this encounter for additional information. This note was generated by [employer] voice recognition software and as a result grammatical or spelling errors may occur using this program. - Medical Records Medical records reviewed: Yes I reviewed the patient's medical records. - Radiology Data Radiology results reviewed: Yes I reviewed the patient's radiology results. Lumbar Spine MRI 01/13/18 16:02 IMPRESSION: 1. Severe spinal canal stenosis and severe left neural foraminal narrowing at L4-5 secondary to a disc bulge, facet arthropathy, thickening of the ligamentum flavum and superimposed focal 4 mm left foraminal disc protrusion. 2. [id number] left neural foraminal narrowing at L3-4 secondary to a disc bulge. 3. Interval development of marked signal abnormality and enhancement within the paraspinal musculature from L3 to S1. This is nonspecific but could indicate a myositis given the diffuse involvement of the musculature. D/ / 01/13/2018 20:37:17 Brandon Harris MD / Nereida Pearce Interpreting Provider: Brandon Harris MD Attestation Statement - Attestation Attestation: I, Jagdeep Soria DO, examined this patient [id number] and my medical decision-making was reviewed with Ten Cano DO , Resident Physician. I agree with the documented findings, disposition and treatment plan as described except to the extent set forth below. Please see my progress notes for details.
[2018-01-13] MEDS ORDERED: Isovue-370 500 ML INFUS..BTL IV ONE (17:14)
--- NOTE | 2018-01-13 17:38 | Emergency Department Note ---
Disposition Clinical Impression: Cauda equina compression, Leg weakness Disposition: Admitted As Inpatient Condition: Fair Referrals: NONE,PCP [Primary Care Provider] - Forms: ED Satisfaction Letter Time of Disposition: 20:54 General Adult HPI - General Chief complaint: ED Back Pain/Injury Stated complaint: back pain Time Seen by Provider: 01/13/18 15:55 Source: patient Limitations: no limitations - History of Present Illness Pain Scale: 9 - Related Data Home Medications Medication Instructions Recorded Confirmed Amlodipine Besylate 10 mg PO DAILY 08/15/17 08/15/17 Atenolol [Tenormin] 50 mg PO DAILY 08/15/17 08/15/17 Clopidogrel [Plavix] 75 mg PO DAILY 08/15/17 08/15/17 Insulin 08/15/17 Lisinopril [Zestril] 20 mg PO BID 08/15/17 08/15/17 Tizanidine HCl [Zanaflex] 4 - 8 mg PO HS 08/15/17 08/15/17 metFORMIN [Glucophage] 500 mg PO QID 08/15/17 08/15/17 Previous Rx's Medication Instructions Recorded Gabapentin [Neurontin] 300 mg PO TID #90 capsule 08/19/17 Glimepiride [Amaryl] 1 mg PO DAILY #15 tablet 08/19/17 cloNIDine HCl [CloNIDine HCl] 0.1 mg PO BID #60 tablet 08/19/17 predniSONE [PredniSONE] 40 mg PO DAILY #10 tablet 08/19/17 Allergies Allergy/AdvReac Type Severity Reaction Status Date / Time No Known Allergies Allergy Verified 08/15/17 17:22 Past Medical History - Past Medical History Medical history: Reports: arthritis, diabetes, hyperlipidemia, hypertension, myocardial infarction, other Psychiatric history: Reports: anxiety, depression - Social History Smoking Status: Former smoker Smokeless Tobacco Status: No Alcohol use: Reports: none Drug use: Reports: none Physical Exam - General Limitations: no limitations General appearance: alert, in no apparent distress Course Vital Signs Temperature 97.7 F 01/13/18 16:06 Pulse Rate 95 01/13/18 16:06 Respiratory Rate 16 01/13/18 16:06 Blood Pressure 94/66 01/13/18 16:06 O2 Sat by Pulse Oximetry 100 01/13/18 16:06 Temperature 97.7 F 01/13/18 16:06 Pulse Rate 95 01/13/18 20:02 Respiratory Rate 16 01/13/18 20:02 Blood Pressure 143/71 01/13/18 20:02 O2 Sat by Pulse Oximetry 100 01/13/18 20:02 Oxygen Delivery Oxygen Delivery Room Air Attestation Statement - Attestation Attestation: I, Jagdeep Soria DO, examined this patient [id number] and my medical decision-making was reviewed with Ten Cano DO , Resident Physician. I agree with the documented findings, disposition and treatment plan as described except to the extent set forth below. Please see my progress notes for details. 67-year-old male presents to the emergency room from the nursing facility for evaluation of persistently worsening bilateral lower extremity weakness. Patient is a long-standing issue with this in the past. He has a very bad lumbar spine. It is only reason he is in the intermediate at this time. He is at the neurologist office today being seen by Dr. Almazan. Dr. Almazan completed and neurologic evaluation including rectal exam is concerned about decreased rectal tone. Patient had been having episodes of bowel incontinence. He says that when he has the bowel incontinence because the nursing staff does not come to get him quickly or today it was when they bounced him in the ambulance and it hurt in his back and he accidentally had a bowel movement. He denies any chest pain, shortness of breath. Denies any fevers or chills. Denies any nausea vomiting or diarrhea. Currently denying headache or vision change. He says that from his waist up he feels completely normal. From his waist down he has significant pain and decreased ability to move his legs. Recommendation from neurology was to have MRI of the lumbar spine completed. Patient will have IV started to help with pain control during the procedure and then MRI will be ordered for definitive evaluation. His physical exam shows a well-appearing male. Lungs are clear heart is regular. Abdomen is soft nontender nondistended. He does have normal sensation in the bilateral lower extremities but does have appreciable weakness on exam. Reflexes appear to be diminished as well. Detailed workup will be completed and disposition to be determined. We will continue to monitor here until treatment course is completed. See detailed documentation of the physical exam, medical intervention, medical decision- making and disposition in the resident physician's note. 2044 MRI confirms concern for cauda equina syndrome. With signal uptake abnormalities in severe spinal canal stenosis. Patient will be admitted. The spine surgeon Dr. Packer was contacted. No other recommendations at this time. Hospitalist Dr. Menon was contacted and no other recommendations or issues noted at this point. Patient will be admitted with pain control and labs completed with possible surgical intervention in the future. Patient is otherwise stable. Family informed. Patient will be admitted for continuation of care.
[2018-01-13 21:49] LABS: Basophils # 0.1 K/mcL (0.0-0.2); Basophils % 0.5 %; Eosinophils # 0.2 K/mcL (0.0-0.6); Eosinophils % 1.6 %; Hematocrit 42.5 % (37.5-50.1); Hemoglobin 13.7 g/dL (12.9-16.9); Immature Granulocytes % 0.3 % (0-4); Lymphocytes # 2.1 K/mcL (0.6-4.6); Lymphocytes % 16.1 %; Mean Corpuscular HGB Conc 32.2 g/dL (31.6-35.5); Mean Corpuscular Hemoglobin 30.3 pg (28.0-33.3); Mean Platelet Volume 11.5 fL (9.4-12.4); Monocytes # 0.9 K/mcL (0.0-1.3); Monocytes % 6.9 %; Neutrophils # 9.6 K/mcL (1.6-8.9); Platelet Count 219 K/mcL (140-400); Red Blood Count 4.52 M/mcL (4.19-5.50); Red Cell Distribution Width 11.9 % (11.5-14.5); Segmented Neutrophils % 74.6 %
[2018-01-13 22:01] LABS: Prothrombin Time 10.8 Seconds (9.4-12.1)
[2018-01-13 22:03] LABS: Activated Partial Thrombo Time 28.9 Seconds (26.0-36.0)
--- NOTE | 2018-01-13 22:08 | Event Note ---
Date of Encounter: 01/13/18 Time of Encounter: 22:00 Patient was seen and examined. I agree with the H&P as written by the resident physician. Patient with h/o dm, hld, htn, cad with stents, was sent to the ED to get an MRI to rule out Cauda Equina. From a nursing facility originally had an appointment with Dr. Almazan today to evaluate him for back pain and b/l LE weakness. Had decreased rectal tone per Dr. Almazan and patient reports bowel incontinence. Hemodynamically stable. MRI lumbar spine showed severe spinal canal stenosis and severe left neural foraminal narrowing at L4-5 secondary to a disc bulge, facet arthropathy. Mild to moderate left neural foraminal narrowing at L3-4 secondary to disc bulge, interval development of marked signal abnormality and enhancement within the paraspinal musculature from L3 to S1. Dr. Packer was contacted in the ED and recommended admission with likely operating on the patient while h ere. GEN: NAD CVS: RRR. S1, S2, No m/r/g RESP: CTAB ABD: Soft, NT, ND, +BS EXT: No edema. 2+ DP. No rashes NEURO: Patient is significantly weak in the lower extremity. He is not able to raise both of his legs at all for me. He has intact sensation eagle to my light touch. Admit to hospitalist. Dr. Gannon did not want steroids Patient has stents and echo last July showed EF 60-65% with asymmetric hypertrophy of the basal septum and very mild LVOT gradient of 9 mmHG and mild LV diastolic dysfunction. Patient has no sings of volume overload. No chest pain. Will get an EKG for pre-op purposes. Patient has a history of coronary disease and is not on a beta gilda, statin, aspirin. Consult cardiology for pre-op clearance. Resume previous meds sliding scale insulin. DVT ppx.
[2018-01-13 22:09] LABS: BUN/Creatinine Ratio 33 (6-26); Blood Urea Nitrogen 31 mg/dL (8-23); Calcium 9.1 mg/dL (8.6-10.3); Carbon Dioxide 29 mEq/L (23-29); Chloride 105 mEq/L (98-107); Glucose 198 mg/dL (70-105); Osmolality,Calculated 300 (280-300); Potassium 4.4 mEq/L (3.5-5.1); Sodium 139 mEq/L (136-145); eGFR For Non-African Americans > 60 (> 60)
--- NOTE | 2018-01-13 22:19 | Internal Med History&Physical ---
Date of Encounter: 01/13/18 Time of Encounter: 21:58 Internal Medicine - H&P: HPI Chief complaint: Weakness in LE B/L Plans for Post Hospital Care: Hospice - Home History of present illness: Mr. Waters is a 67 year old male presenting with bilateral leg weakness that has been ongoing for several months. He was sent to [place] to get a MRI of his spine. During his neurologic eval patient had decreased rectal tone in addition to his weakness. Patient also has lower back pain that is midline, focal, radiating down the right leg, 10/10 in severity, reproducible with palpation. Patient also states that he is having decreased sensation b/l especially in the R let from the hip down. Patient reports that symptoms are alleviated when he is laying down and curled up with flexion of back. He also states that symptoms do not get worse with exertion. Patient denies sadle anesthesia. Patient denies fever, night sweats, N/V, SOB, cough, CP, palpitations, urinary frequency, changes in stooling, abdominal pain. Spinal MRI done today shows se shawn spinal stenosis of L4-L5. Dr. Packer with spinal surgery was consulted and he recommended admission with possible decompression tomorrow. Dr. Packer requests basic labs for cardiac clearance. Patient has history of 3x cardiac stents, DM, and dementia. Past Med Surg Social Fam HX - Past Medical History Medical history: arthritis, diabetes, hyperlipidemia, hypertension, myocardial infarction, other Additional medical history: cardiac stent x3, L endarterectomy Psychiatric history: anxiety, depression - Past Surgical History Additional surgical history: skin cancer removal - Social History Smoking Status: Former smoker Smokeless Tobacco Status: No Alcohol use: none Drug use: none Internal Medicine - H&P: Meds Lisinopril [Zestril] 20 mg PO DAILY 08/15/17 [History] metFORMIN [Glucophage] 500 mg PO BID 08/15/17 [History] Glimepiride [Amaryl] 1 mg PO DAILY #15 tablet 08/19/17 [Rx] Duloxetine HCl [Cymbalta] 60 mg PO DAILY 01/13/18 [History] HYDROcodone/Acet 5/325 mg [[place] 5-325 mg] 1 tab PO Q4H PRN 01/13/18 [History] Insulin ASPART [Novolog Flexpen] 0 unit SQ TID 01/13/18 [History] LORazepam [Ativan] 1 mg PO HS 01/13/18 [History] Lidocaine Patch [Lidoderm 5% patch] 1 each TP DAILY 01/13/18 [History] Polyethylene Glycol 3350 [MiraLAX Powder Bulk 17.9 Oz] 1 scoop PO DAILY 01/13/18 [History] Pregabalin [Lyrica] 150 mg PO TID 01/13/18 [History] Tizanidine HCl 4 mg PO DAILY 01/13/18 [History] Allergy/AdvReac Type Severity Reaction Status Date / Time No Known Allergies Allergy Verified 08/15/17 17:22 All Systems PM: A 10-system review of systems was performed and is negative for pertinent findings except as documented above in the HPI. - Constitutional Constitutional: as per HPI - Cardiovascular Cardiovascular ROS IM: as per HPI - Respiratory Respiratory: as per HPI - Gastrointestinal Gastrointestinal: as per HPI - Genitourinary Genitourinary ROS male: as per HPI, no difficulty urinating, no dysuria - Constitutional Vitals: Temp Pulse Resp BP Pulse Ox 97.7 F 91 16 132/70 99 01/13/18 16:06 01/13/18 21:31 01/13/18 21:31 01/13/18 21:31 01/13/18 21:31 General appearance: Present: mild distress, A&O X 3, pleasant Exam: . - Head Head exam: Present: atraumatic, normal inspection - Eye Eye exam: Present: EOMI, PERRL. Absent: conjuntiva pink - Neck Neck exam general surgery: Present: supple, trachea midline - Respiratory Respiratory exam: Present: CTAB - Cardiovascular Cardiovascular exam: Present: RRR, +S1, +S2 - GI/Abdominal GI/Abdominal exam: Present: soft. Absent: distended, mass, rebound, rigid - Extremities Exam Extremities exam: Present: tenderness (b/l lower extremity tenderness, decreased sensation) - Back Exam Back exam: Present: vertebral tenderness (L4-L5, reproducable with palpation). Absent: CVA tenderness (L), CVA tenderness (R) - Neurological Exam Neurological exam: Present: alert, altered, CN II-XII intact, oriented X3 - Expanded Neurological Exam Sensory exam: lower extremity light touch: Abnormal Left, Abnormal Right (especially on right lower leg below knee), upper extremity light touch: Normal Neuro motor strength exam: LUE: 5, RUE: 5, LLE: 3, RLE: 2/1 - Psychiatric Psychiatric exam: Present: normal affect, normal mood - Skin Skin exam: Present: dry, intact (RLE has bandage due to diabetic ulcer on R pedraza). Absent: abrasion, cyanosis Internal Med - H&P Results - Labs CBC & Chem 7: 01/13/18 21:18 01/13/18 21:18 Labs: Short CBC 01/13/18 Range/Units 21:18 WBC 12.8 H (4.3-11.1) K/mcL Hgb 13.7 (12.9-16.9) g/dL Hct 42.5 (37.5-50.1) % Plt Count 219 (140-400) K/mcL Neutrophils # 9.6 H (1.6-8.9) K/mcL - Impressions ITS Impressions Lumbar Spine MRI 01/13/18 16:02 IMPRESSION: 1. Severe spinal canal stenosis and severe left neural foraminal narrowing at L4-5 secondary to a disc bulge, facet arthropathy, thickening of the ligamentum flavum and superimposed focal 4 mm left foraminal disc protrusion. 2. [id number] left neural foraminal narrowing at L3-4 secondary to a disc bulge. 3. Interval development of marked signal abnormality and enhancement within the paraspinal musculature from L3 to S1. This is nonspecific but could indicate a myositis given the diffuse involvement of the musculature. D/ / 01/13/2018 20:37:17 Brandon Harris MD / Nereida Pearce Interpreting Provider: Brandon Harris MD Chest X-Ray 01/13/18 20:50 IMPRESSION: 1. No acute cardiopulmonary disease. D/ / Damaso Aguirre MD / Damaso Aguirre MD Interpreting Provider: Damaso Aguirre MD - Assessment and plan (1) Lumbar spinal stenosis Current Visit: No Status: Acute Assessment and plan: 67 YO M presenting with spinal stenosis diagnosed with spinal MRI. Dr. Mckeon will see patient tomorrow and consider possible decompression - NPO midnight - Patient has significant cardiac history with 3x stents placed. EKG and BNP ordered in AM. Cardiology has been consulted for surgical clearance. Qualifiers: Qualified Code(s): M48.061 - Spinal stenosis, lumbar region without desean rogenic claudication (2) Diabetes mellitus Current Visit: No Status: Chronic Assessment and plan: Patient has diabetes. - Home diabetes medications d/c and patient put on sliding scale. Qualifiers: Diabetes mellitus type: type 2 Diabetes mellitus mcc insulin use: without mcc use Diabetes mellitus complication status: without complication Qualified Code(s): E11.9 - Type 2 diabetes mellitus without complications - Time Spent With Patient Total time spent is greater than 50% in coordination of care (as documented) at patient's floor/unit and/or counseling patient:
[2018-01-13] MEDS ORDERED: Naloxone 0.4 MG/ML INJ IVP PRN (22:29)
[2018-01-13] MEDS ORDERED: D5% in Water 1,000 ML IVC PRN (22:39)
[2018-01-13] MEDS ORDERED: *HR* Dextrose 50 % in Water (Syg) 50 ML SYRINGE IVP PRN (22:39)
[2018-01-13] MEDS ORDERED: Dextrose Gel 15 GM/37.5 ML TUBE PO PRN ×2 (22:39)
[2018-01-13] MEDS ORDERED: *HR* LORazepam 1 MG TABLET PO PRN (22:41)
[2018-01-13 22:59] LABS: Basophils # 0.1 K/mcL (0.0-0.2); Basophils % 0.5 %; Eosinophils # 0.3 K/mcL (0.0-0.6); Eosinophils % 2.1 %; Hematocrit 40.7 % (37.5-50.1); Hemoglobin 13.3 g/dL (12.9-16.9); Immature Granulocytes % 0.2 % (0-4); Lymphocytes # 2.6 K/mcL (0.6-4.6); Lymphocytes % 20.5 %; Mean Corpuscular HGB Conc 32.7 g/dL (31.6-35.5); Mean Corpuscular Hemoglobin 30.1 pg (28.0-33.3); Mean Corpuscular Volume 92.1 fL (83.0-100.0); Mean Platelet Volume 11.1 fL (9.4-12.4); Monocytes # 0.9 K/mcL (0.0-1.3); Monocytes % 7.1 %; Neutrophils # 8.8 K/mcL (1.6-8.9); Platelet Count 213 K/mcL (140-400); Red Blood Count 4.42 M/mcL (4.19-5.50); Segmented Neutrophils % 69.6 %
[2018-01-13] MEDS: *HR* HYDROcodone/Acet 5/325 mg TABLET PO PRN (23:58)
[2018-01-14] MEDS: Insulin LISPRO 300 UNITS/3 ML VIAL SQ SCH ×4 (00:04→18:37)
[2018-01-14] MEDS: 0.9 % Sodium Chloride 1,000 ML IVC SCH (00:12)
[2018-01-14] MEDS ORDERED: *HR* Meperidine 25 MG/ML SYRINGE IVP ONE (01:51)
[2018-01-14] MEDS ORDERED: Ondansetron 4 MG/2 ML VIAL IVP ONE ×2 (02:02→20:33)
[2018-01-14] MEDS ORDERED: *HR* FentaNYL (PF) 100 MCG/2 ML VIAL IVP ONE (03:49)
[2018-01-14] MEDS: *HR* Heparin 5,000 UNIT/ML VIAL SQ SCH ×2 (06:23→13:42)
[2018-01-14 06:40] LABS: BUN/Creatinine Ratio 32 (6-26); Blood Urea Nitrogen 25 mg/dL (8-23); Calcium 9.5 mg/dL (8.6-10.3); Carbon Dioxide 30 mEq/L (23-29); Chloride 106 mEq/L (98-107); Glucose 91 mg/dL (70-105); Osmolality,Calculated 296 (280-300); Potassium 3.9 mEq/L (3.5-5.1); Sodium 141 mEq/L (136-145); eGFR For Non-African Americans > 60 (> 60)
[2018-01-14] MEDS: *HR* HYDROcodone/Acet 5/325 mg TABLET PO PRN ×3 (07:20→17:04)
[2018-01-14] MEDS: Pregabalin 75 MG CAPSULE PO SCH ×3 (07:20→22:28)
--- NOTE | 2018-01-14 08:02 | Spinal Consult Note ---
Date of Encounter: 01/14/18 Time of Encounter: 07:59 Assessment and Plan (1) Lumbar stenosis without neurogenic claudication Current Visit: Yes Status: Chronic On examination the patient is complaining of severe back pain. He has marked limitation with forward flexion and extension of the lumbar spine. He is able to fire all lower extremity motor groups however he has marked weakness in dorsiflexion of the right foot which is 1 on a motor scale. He has no clonus. He has decreased sensation to light touch in the right lower extremity greater than left. He has a negative straight leg raise. He has no clonus. MRI of the lumbar spine dated 01/13/2018 reveals severe stenosis at L4-5. There are multilevel degenerative changes and disc desiccation present. Impression: 1) severe lumbar stenosis 2) evolving cauda equina syndrome 3) right foot drop 4) lumbar radiculopathy 5) gait disturbance Plan: Due to his focal neurologic deficit and risk for permanent or worsening neurologic injury as well as symptoms concerning for evolving cauda equina with poor rectal tone I find it reasonable to consider semiurgent surgery in the form of a laminectomy L4-L5. Risk benefits possible complications and alternatives were discussed and the patient would like to proceed. Patient understands she must the medically optimized and cleared prior to surgical intervention. (2) Foot drop, right Current Visit: Yes Status: Chronic (3) Lumbar radiculopathy Current Visit: Yes Status: Chronic History of Present Illness Chief complaint: Leg weakness, back pain HPI: Mr. Waters is a 67 year old male presenting with bilateral leg weakness that has been ongoing for several months. He had an evaluation by Dr. Gurwinder Almazan of neurology and during his neurologic eval patient had decreased rectal tone in addition to bilateral lower extremity weakness. He was sent to the emergency department for emergent MRI due to concerns of evolving cauda equina syndrome. Patient also has severe lower back pain with radiation down the right lower extremity. He rates the pain a 10 on a pain scale. He also complains of numbness in the legs right gre ater than left. He denies any bowel bladder symptomatology at this time. He admits to gait intolerance and difficulty walking. Past Med Surg Social Fam HX - Past Medical History Medical history: arthritis, diabetes, hyperlipidemia, hypertension, other Additional medical history: cardiac stent x3, L endarterectomy Psychiatric history: anxiety, depression - Past Surgical History Additional surgical history: skin cancer removal - Social History Smoking Status: Former smoker Smokeless Tobacco Status: No Alcohol use: none Drug use: none - Family History Mother Living Status: Age at : 72 Cause of : [place] Hx Family Cardiac Disorders: Yes (ND) Father Living Status: Hx Family Cardiac Disorders: Yes Medications and Allergies Lisinopril [Zestril] 20 mg PO DAILY 08/15/17 [History] metFORMIN [Glucophage] 500 mg PO BID 08/15/17 [History] Glimepiride [Amaryl] 1 mg PO DAILY #15 tablet 08/19/17 [Rx] Duloxetine HCl [Cymbalta] 60 mg PO DAILY 01/13/18 [History] HYDROcodone/Acet 5/325 mg [[place] 5-325 mg] 1 tab PO Q4H PRN 01/13/18 [History] Insulin ASPART [Novolog Flexpen] 0 unit SQ TID 01/13/18 [History] LORazepam [Ativan] 1 mg PO HS 01/13/18 [History] Lidocaine Patch [Lidoderm 5% patch] 1 each TP DAILY 01/13/18 [History] Polyethylene Glycol 3350 [MiraLAX Powder Bulk 17.9 Oz] 1 scoop PO DAILY 01/13/18 [History] Pregabalin [Lyrica] 150 mg PO TID 01/13/18 [History] Tizanidine HCl 4 mg PO DAILY 01/13/18 [History] Allergy/AdvReac Type Severity Reaction Status Date / Time No Known Allergies Allergy Verified 08/15/17 17:22 Results - Labs Result Diagrams: 01/13/18 22:47 01/14/18 05:47 Labs: Abnormal lab results WBC 12.6 K/mcL (4.3-11.1) H 01/13/18 22:47 Carbon Dioxide 30 mEq/L (23-29) H 01/14/18 05:47 BUN 25 mg/dL (8-23) H 01/14/18 05:47 BUN/Creatinine Ratio 32 (6-26) H 01/14/18 05:47 B-Natriuretic Peptide 132 pg/mL (Less than 100) H 01/14/18 05:47 H & H 01/13/18 01/13/18 Range/Units 21:18 22:47 Hgb 13.7 13.3 (12.9-16.9) g/dL Hct 42.5 40.7 (37.5-50.1) % All other labs normal. Consult Discharge Plan - Plan Referrals: NONE,PCP [Primary Care Provider] -
[2018-01-14] MEDS ORDERED: Lisinopril 20 MG TABLET PO SCH (09:00)
[2018-01-14] MEDS ORDERED: Regadenoson 0.4 MG/5 ML SYRINGE IVP ONE (09:50)
--- NOTE | 2018-01-14 09:51 | Cardiology Consult Note ---
<Pal Castillo - Last Filed: 01/14/18 09:44> Date of Encounter: 01/14/18 Time of Encounter: 08:40 Assessment and Plan (1) Pre-operative cardiovascular examination Current Visit: Yes Status: Acute Cardiology asked to evaluate pt prior to spine surgery for severe spinal stenosis. Known history of remote PCI. EKG shows RBBB with ST changes noted in lead V2 and V3 changed from prior EKG 07/2017. Pt with limited mobility and inability to fully assess symptoms. Recommend stress test for further risk stratification. (2) CAD (coronary artery disease) Current Visit: Yes Status: Acute H/o CAD s/p prior PCI. Recommend continuing asa, statin, and bb shu- operatively. Qualifiers: Coronary Disease-Associated Artery/Lesion type: sycuan artery [place] vs. transplanted heart: sycuan heart Associated angina: without angina Qualified Code(s): I25.10 - Atherosclerotic heart disease of sycuan coronary artery without angina pectoris Discussion w patient/family: The assessment and plan as outlined above was discussed with the patient and/or family members who expressed understanding and agreement. All questions were answered. Thank you for involving us in the care of your patient. Please call with any questions. History of Present Illness Consult date: 01/14/18 Requesting physician: Agusto Gilbert Consult reason: Pre-operative cardiovascular risk assessment Chief complaint: difficulty walking History of present illness: Mr. Waters is a 67 year old male with past medical history of remote PCI, HTN, HLD, DM, Left CEA who presents from [facility] with leg weakness for several months. Pt states he had leg weakness for 4-5 years on my exam. He uses walker and wheel chair. He does minimal ambulation. Surgery was consulted for evaluation of symptoms. Spine MRI revealed severe stenosis in L4-L5 and multilevel degenerative changes. He is recommended for semi-urgent spine surgery. Cardiology consulted for preoperative cardiovascular risk assessment. He denies chest pain or SOB. On my exam he is drowsy. He is a poor historian. He does state that he had a stent placed about 20 years ago. He was seen in July of this year for mild troponin elevation in the setting of hypertensive urgency and mild RASHMI. His activity is limited secondary to leg weakness and he is unable to complete 4 mets of activity. TTE completed showed preserved EF. Denies recent stress test. Past Med Surg Social Fam HX - Past Medical History Medical history: arthritis, coronary artery disease, diabetes, hyperlipidemia, hypertension, other Additional medical history: cardiac stent x3, L endarterectomy Psychiatric history: anxiety, depression - Past Surgical History Additional surgical history: skin cancer removal - Social History Smoking Status: Former smoker Smokeless Tobacco Status: No Alcohol use: none Drug use: none - Family History Mother Living Status: Age at : 72 Cause of : [place] Hx Family Cardiac Disorders: Yes (DC) Father Living Status: Hx Family Cardiac Disorders: Yes Medications and Allergies Lisinopril [Zestril] 20 mg PO DAILY 08/15/17 [History] metFORMIN [Glucophage] 500 mg PO BID 08/15/17 [History] Glimepiride [Amaryl] 1 mg PO DAILY #15 tablet 08/19/17 [Rx] Duloxetine HCl [Cymbalta] 60 mg PO DAILY 01/13/18 [History] HYDROcodone/Acet 5/325 mg [[place] 5-325 mg] 1 tab PO Q4H PRN 01/13/18 [History] Insulin ASPART [Novolog Flexpen] 0 unit SQ TID 01/13/18 [History] LORazepam [Ativan] 1 mg PO HS 01/13/18 [History] Lidocaine Patch [Lidoderm 5% patch] 1 each TP DAILY 01/13/18 [History] Polyethylene Glycol 3350 [MiraLAX Powder Bulk 17.9 Oz] 1 scoop PO DAILY 01/13/18 [History] Pregabalin [Lyrica] 150 mg PO TID 01/13/18 [History] Tizanidine HCl 4 mg PO DAILY 01/13/18 [History] Allergy/AdvReac Type Severity Reaction Status Date / Time No Known Allergies Allergy Verified 08/15/17 17:22 All Systems Review: The remainder of the systems were reviewed and are negative Physical Examination Vital Signs, Last 4 Hours Temp Pulse Resp BP Pulse Ox 01/14/18 06:59 97.8 F 90 16 157/68 98 01/14/18 06:31 174/80 General: No Apparent Distress, Other (Drowsy) HEENT: Atraumatic, Normocephaly, Mucus Membranes Moist Neck: No JVD, Normal carotid pulses Cardiac: Reg Rate and Rhythm, Normal S1 and S2, No Murmur Lungs: Normal Breath Sounds, No Wheeze, Rales, Rhonchi Neuro: Other (Drowsy, oriented x3) Abdomen: Soft, Non-Tender Skin: No rashes noted on visualized skin Musculoskeletal: No Chest Wall Tenderness Extremities: No Clubbing, No Cyanosis, Normal Pulses Results 01/13/18 22:47 01/14/18 05:47 Lab Results 01/13/18 01/13/18 01/13/18 21:18 21:18 21:18 WBC 12.8 H Hgb 13.7 Hct 42.5 Plt Count 219 INR 1.0 APTT 28.9 Sodium 139 Potassium 4.4 Chloride 105 Carbon Dioxide 29 BUN 31 H Creatinine 0.94 Glucose 198 H Calcium 9.1 B-Natriuretic Peptide 01/13/18 01/14/18 01/14/18 22:47 05:47 05:47 WBC 12.6 H Hgb 13.3 Hct 40.7 Plt Count 213 INR APTT Sodium 141 Potassium 3.9 Chloride 106 Carbon Dioxide 30 H BUN 25 H Creatinine 0.79 Glucose 91 Calcium 9.5 B-Natriuretic Peptide 132 H - Imaging and Cardiology Echo: report reviewed - EKG Interpretation EKG results cardiology: personally reviewed Consult Discharge Plan - Plan Referrals: NONE,PCP [Primary Care Provider] - <Camilla Tate - Last Filed: 01/14/18 10:48> Date of Encounter: 01/14/18 - Attending Attestation I examined this patient and my medical decision-making was reviewed with the BRANCH ASSOCIATE. I agree with the documented findings, disposition and treatment plan as described. We have been asked to risk stratify Mr. Waters in anticipation of lumbar laminectomy surgery for severe spinal stenosis. At the bedside, the patient appears to be in mild distress due to pain from spinal stenosis. Denies any recent chest pain but admits to poor functional capacity. AAOx3, conversant Vital signs reviewed; hypertension noted, oxygenating on room air Exam - no appreciable cardiac murmur Labs reviewed; normal Hgb, Plt, renal function ECG on admission; NSR, RBBB, nonspecific ST findings (new inV2-V3 when compared with ECG 07/2017) Impression: 1. Preoperative Cardiac Risk Stratification: Patient reports history of CAD and remote PCI. He is not describing symptoms of chest pain but has poor functional capacity. Also demonstrates mild changes in lead V2-V3 when compared to ECG from 07/2017. Therefore, we recommend performing a non-exercise pharmacologic nuclear stress test to help with risk stratification. If surgery is considered emergent, would recommend proceeding without cardiac testing. Assessment and Plan Discussion w patient/family: The assessment and plan as outlined above was discussed with the patient and/or family members who expressed understanding and agreement. All questions were answered. Thank you for involving us in the care of your patient. Please call with any questions. History of Present Illness History of present illness: Mr. Waters is a 67 year old male All Systems Review: The remainder of the systems were reviewed and are negative Physical Examination Vital Signs, Last 4 Hours Temp Pulse Resp BP Pulse Ox 01/14/18 06:59 97.8 F 90 16 157/68 98 Results 01/13/18 22:47 01/14/18 05:47 Lab Results 01/13/18 01/13/18 01/13/18 21:18 21:18 21:18 WBC 12.8 H Hgb 13.7 Hct 42.5 Plt Count 219 INR 1.0 APTT 28.9 Sodium 139 Potassium 4.4 Chloride 105 Carbon Dioxide 29 BUN 31 H Creatinine 0.94 Glucose 198 H Calcium 9.1 B-Natriuretic Peptide 01/13/18 01/14/18 01/14/18 22:47 05:47 05:47 WBC 12.6 H Hgb 13.3 Hct 40.7 Plt Count 213 INR APTT Sodium 141 Potassium 3.9 Chloride 106 Carbon Dioxide 30 H BUN 25 H Creatinine 0.79 Glucose 91 Calcium 9.5 B-Natriuretic Peptide 132 H
--- NOTE | 2018-01-14 15:42 | Event Note ---
Addendum entered and electronically signed by Camilla Tate DO 01/14/18 15:58: Reviewed stress test demonstrating findings suggestive of multi-vessel CAD with gated EF 49%. No evidence for TID. Patient asymptomatic. Pal Castillo CNP discussed case with Dr. Packer. Since patient's surgery is urgent and concerning for developing cauda equina syndrome, would recommend proceeding with surgery with knowledge of high cardiac risk. Any further cardiac testing would ultimately delay necessary surgery and may commit patient to dual antiplatelet therapy further delaying surgery. May consider cardiac catheterization after surgery prior to discharge if appropriate. Original Note: Date of Encounter: 01/14/18 Time of Encounter: 15:37 - Cardiology Event Note Mr. Waters stress test shows medium sized, moderate intensity, mostly reversible perfusion defect involving the entire inferior and basal inferolateral segments suggestive of ischemia. Small sized, moderate intensity, reversible anterior perfusion defect suggestive of ischemia. Findings suggests obstructive multi- vessel CAD. Gated EF 49%. Stress test reviewed with Dr. Tate. Patient is high risk for surgery and he should proceed if surgery is semi-urgent/urgent due to concern for evolving cauda equina syndrome. If patient was to proceed with further cardiac intervention surgery could be delayed for [address] Mckeon notified of final risk assessment. He will proceed with laminectomy. Per Dr. Mckeon okay to start plavix two days post-operatively if needed. Can consider LHC prior to discharge for abnormal stress test or out-pt. Continue asa, statin, and bb shu-operatively.
[2018-01-14] MEDS ORDERED: EPHEDrine 50 MG/ML VIAL ONE (16:25)
[2018-01-14] MEDS ORDERED: *HR* Midazolam HCl 2 MG/2 ML VIAL ONE (16:26)
[2018-01-14] MEDS ORDERED: *HR* FentaNYL (PF) 100 MCG/2 ML VIAL ONE ×2 (16:26→20:44)
[2018-01-14] MEDS ORDERED: *HR* Propofol 200 MG/20 ML VIAL IVP ONE (16:27)
--- NOTE | 2018-01-14 16:27 | Anesthesia Evaluation PreOp ---
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: Denies Any Significant HX Other Medical History: Diabetes Type II Anesthesia History: No Prior Anesthetic Complications, Past Anesthesia Alcohol Use: none Drug use: none Medications and Allergies Lisinopril [Zestril] 20 mg PO DAILY 08/15/17 [History] metFORMIN [Glucophage] 500 mg PO BID 08/15/17 [History] Glimepiride [Amaryl] 1 mg PO DAILY #15 tablet 08/19/17 [Rx] Duloxetine HCl [Cymbalta] 60 mg PO DAILY 01/13/18 [History] HYDROcodone/Acet 5/325 mg [[place] 5-325 mg] 1 tab PO Q4H PRN 01/13/18 [History] Insulin ASPART [Novolog Flexpen] 0 unit SQ TID 01/13/18 [History] LORazepam [Ativan] 1 mg PO HS 01/13/18 [History] Lidocaine Patch [Lidoderm 5% patch] 1 each TP DAILY 01/13/18 [History] Polyethylene Glycol 3350 [MiraLAX Powder Bulk 17.9 Oz] 1 scoop PO DAILY 01/13/18 [History] Pregabalin [Lyrica] 150 mg PO TID 01/13/18 [History] Tizanidine HCl 4 mg PO DAILY 01/13/18 [History] Allergy/AdvReac Type Severity Reaction Status Date / Time No Known Allergies Allergy Verified 08/15/17 17:22 - Meds/Allergy Pre-op Review Medications Reviewed: Yes Allergies Reviewed: Yes Beta Blockers on Current Med List: No Anesthesia Results - Labs 01/13/18 22:47 01/14/18 05:47 - Imaging EKG: report reviewed (08/17/2017 SINUS RHYTHM RIGHT BUNDLE BRANCH BLOCK LEFT ANTERIOR FASCICULAR BLOCK LEFT VENTRICULAR HYPERTROPHY AND ST-T CHANGE) Additional studies: 01/14/2018 Stress Impression: Pharmacologic stress ECG is non-diagnostic for ischemia due to submaximal HR. Gated EF = 49%. Medium sized, moderate intensity, mostly reversible perfusion defect involving the entire inferior and basal inferolateral segments suggestive of ischemia. Small sized, moderate intensity, reversible anterior perfusion defect suggestive of ischemia. Findings suggests obstructive multi-vessel CAD. Cardiology service notified of results. 08/17/2017 Echo Impressions: LVEF 60-65%. Normal LV chamber size and function. Mild asymmetric hypertrophy of the basal septum. Very mild LVOT gradient of 9 mmHg. Mild left ventricular diastolic dysfunction. Atypical septal motion consistent with bundle branch block. Normal right ventricular structure and function. No evidence of pulmonary hypertension. No significant valvular dysfunction. Anesthesia Exam Vital Signs/O2 Sat/Glucose, Most Recent Temp Pulse Resp BP Pulse Ox 98.3 F 99 18 177/76 98 01/14/18 17:18 01/14/18 17:18 01/14/18 17:18 01/14/18 17:18 01/14/18 17:18 Blood Glucose* 87 Height: 6'2''/1.88m Weight: 158 lbs/71.7 kg NPO (# of Hours): 8 Pain Scale: 9 (back) Pain Scale Used: Numeric (1 - 10) - HEENT Pupil (Motor): EOMI Mallampati: III Teeth: Poor dentition (multiple missing/broken teeth) Oral Opening: Greater than 3 - [employer]ELOPER LOC: Oriented [employer] Motor: Normal RUE, Normal LUE, Normal LLE, Normal Face, Deficit RLE [employer]ELOPER Sensory: Normal: RUE, LUE, LLE, Face, Deficit: RLE - Cardiac Rhythm: Regular Murmur: None - Pulmonary Breath Sounds: bilateral Clear Respiratory Effort: Symmetrical Anesthesia Assess/Plan ASA Score: 4 Level of consciousness: Cooperative, Oriented, Tranquil Anesthetic Plan: General Monitoring Plan: Standard Monitors Recovery Plan: PACU
[2018-01-14] MEDS ORDERED: Dexamethasone 4 MG/ML VIAL ONE ×2 (16:32)
[2018-01-14] MEDS ORDERED: *HR* Rocuronium Bromide 50 MG/5 ML VIAL ONE (16:32)
[2018-01-14] MEDS ORDERED: Ondansetron 4 MG/2 ML VIAL ONE (16:32)
[2018-01-14] MEDS ORDERED: *HR* Succinylcholine 200 MG/10 ML VIAL IVP ONE (16:32)
--- NOTE | 2018-01-14 16:49 | Electrocardiograph Report ---
[address] [place], [place] [address] Test Date: 2018-01-14 Pat Name: Fermin Watres Department: 113 Room: [facility] Gender: M [employer] Manager: : [id number] Requested By: Agusto Gilbert Order Number: [id number] Reading MD: Camilla Tate Measurements Intervals [place] Rate: 87 P: 62 ID: [id number] QRS: -57 QRSD: 133 T: 64 QT: 370 QTc: 415 Interpretive Statements SINUS RHYTHM RIGHT BUNDLE BRANCH BLOCK LEFT ANTERIOR FASCICULAR BLOCK MODERATE VOLTAGE CRITERIA FOR LVH, CONSIDER NORMAL VARIANT POSSIBLE SEPTAL MYOCARDIAL INFARCTION, OF INDETERMINATE AGE Electronically Signed On 01-14-2018 16:47:35 EST by Camilla Tate
[2018-01-14] MEDS ORDERED: Bacitracin 50,000 UNIT, Polymyxin B Sulfate 500,000 UNIT, Sodium Chloride IRRigation 1,... IR ONE (18:00)
[2018-01-14] MEDS ORDERED: *HR* Remifentanil 2 MG VIAL IVP ONE (18:11)
[2018-01-14] MEDS ORDERED: *HR* Phenylephrine 10 MG/ML VIAL ONE (18:12)
[2018-01-14] MEDS ORDERED: Nitroglycerin 25 MG/250 ML INFUS..BTL IVC ONE (18:22)
[2018-01-14] MEDS ORDERED: Neostigmine Methylsulfate 3 MG/3 ML SYRINGE ONE (19:40)
--- NOTE | 2018-01-14 19:57 | Orthopedic Operative Note ---
Date of procedure: 01/14/18 Pre-op diagnosis: Lumbar stenosis, evolving cauda equina syndrome, right foot drop Post-op diagnosis: same Operation/Findings: Laminectomy L4-L5: The patient was brought to the operative theater where he underwent general endotracheal anesthesia. He was given antibiotics prior to the start of the procedure. Compression boots and stockings were used for deep vein thrombosis prophylaxis. The patient was placed prone on a Reji table. The back was prepped and draped in the usual sterile fashion. An incision was marked and centered over the L4-L5 interspaces in the midline. We used Bovie cautery to make an incision and then this incision was deepened through the lumbar fascia. Bovie cautery and Oliveira elevators were used to reflect the paraspinal musculature to the lateral extent of the L4-5 facet joints bilaterally. Julienne clamps were placed over the spinous processes of L4 and L5 and an intraoperative lateral fluorograph was obtained. A discusssion was held between the radiologist and surgeon who both confirmed we were at the correct op erative level. We then removed the supraspinous and interspinous ligaments between L4 and L5 and subsequently removed the ligamentum flavum from its origin on the distal undersurface of the L4 lamina. The ligamentum flavum was noted to be quite hypertrophied as well as the facets were hypertrophied. This required performing a laminectomy of L4 with partial medial facetectomies including undercutting of the L4-L5 facets to decompress the lateral recesses. After the decompression was complete we checked the foramen and the traversing nerve roots at L4-5 and they were found to be free and patent. We copiously irrigated the wound and then closed the wound in layers with 1 Vicryl for the fascia, 2-0 Vicryl for the subcutaneous tissue, and Dermabond was used for skin closure. Sterile dressings were placed over the wound, the patient was turned supine in a hospital bed, and was extubated in the operative theater. All sponge needles and instrument counts were correct at the end of the procedure. The patient tolerated the procedure well without complications. Anesthesia: GETA Surgeon: Gera Packer Jr Was there an assistant dean of students present: No Estimated blood loss (cc): 15 Specimen: None Condition: stable Disposition: PACU
[2018-01-14] MEDS ORDERED: *HR* FentaNYL (PF) 100 MCG/2 ML VIAL IVP PRN (20:33)
[2018-01-14] MEDS ORDERED: *HR* OxyCODONE Immed Rel 5 MG TABLET PO PRN (20:33)
[2018-01-14] MEDS ORDERED: *HR* Meperidine 25 MG/ML SYRINGE IVP PRN (20:33)
[2018-01-14] MEDS ORDERED: Ringers Solution, Lactated 1,000 ML IVC SCH (20:45)
--- NOTE | 2018-01-14 21:08 | Anesthesia Evaluation Post Op ---
Date of Encounter: 01/14/18 Time of Encounter: 21:06 - Vital Signs Vital Signs: Vital Signs/O2 Sat, Most Current Temp Pulse Resp BP Pulse Ox 97.9 F 81 14 140/65 99 01/14/18 20:50 01/14/18 21:00 01/14/18 21:00 01/14/18 21:00 01/14/18 21:00 - Lungs Lungs: Clear Ascult./Percussion - Airway Airway: Non-obstructed - Cardiovascular Regular Rate - Mental Status Mental Status: Alert & Oriented, Answers Appropriately - Pain Pain Scale used: Numeric (1 - 10) (tolerable) - Nausea Vomiting Nausea Vomiting: Not Present - Hydration Hydration: NPO - Discharge PostOp Status: Transfer Patient to floor
[2018-01-14] MEDS ORDERED: Ondansetron 4 MG/2 ML VIAL IVP PRN (21:33)
[2018-01-14] MEDS ORDERED: Acetaminophen 325 MG TABLET PO PRN (21:33)
[2018-01-14] MEDS ORDERED: *HR* HYDROcodone/Acet 5/325 mg TABLET PO PRN (21:33)
[2018-01-14] MEDS ORDERED: Naloxone 0.4 MG/ML INJ IVP PRN (21:33)
[2018-01-14] MEDS: Ringers Solution, Lactated 1,000 ML IVC SCH (22:27)
[2018-01-14] MEDS: *HR* Metformin 500 MG TABLET PO SCH (22:33)
[2018-01-14] MEDS: *HR* OxyCODONE Immed Rel 5 MG TABLET PO PRN (22:41)
[2018-01-15] MEDS: *HR* OxyCODONE Immed Rel 5 MG TABLET PO PRN ×3 (04:24→14:42)
[2018-01-15] MEDS: *HR* Metformin 500 MG TABLET PO SCH (08:46)
[2018-01-15] MEDS ORDERED: *HR* Glimepiride 2 MG TABLET PO SCH (09:00)
[2018-01-15] MEDS ORDERED: tiZANidine 4 MG TABLET PO SCH (09:00)
--- NOTE | 2018-01-15 10:29 | Cardiology Progress Note ---
Date of Encounter: 01/15/18 Time of Encounter: 10:27 Assessment and Plan (1) Abnormal stress test Current Visit: Yes Status: Acute Pt completed stress test for pre-operative risk stratification. Stress test demonstrated medium sized, moderate intensity, mostly reversible perfusion defect involving the entire inferior and basal inferolateral segments suggestive of ischemia. Small sized, moderate intensity, reversible anterior perfusion defect suggestive of ischemia. Findings suggests obstructive multi-vessel CAD. Test results reviewed with patient. LHC is recommended in the future. He will need to wait 2 days prior to starting plavix after spinal surgery. Earliest time for LHC would be early next week. After further discussion with Dr. Tate we will have pt f/u out-pt to discuss LHC next week. There are no high risk findings that suggest he should stay in hospital for procedure (TID or severe defect). Pt denies cardiac symptoms. Patient agrees with plan. Recommend asa, statin, bb, and SL NTG PRN. Start plavix in 2 days. [facility] will coordinate out-pt f/u in 1 week. (2) Pre-operative cardiovascular examination Current Visit: Yes Status: Acute Cardiology asked to evaluate pt prior to spine surgery for severe spinal stenosis. Known history of remote PCI. EKG shows RBBB with ST changes noted in lead V2 and V3 changed from prior EKG 07/2017. Pt with limited mobility and inability to fully assess symptoms, stress test was recommended. Due to abnormal stress pt deemed high risk for surgery. Pt underwent one level laminectomy with Dr. Mckeon 01/14/18 with no complication. (3) CAD (coronary artery disease) Current Visit: Yes Status: Acute H/o CAD s/p prior PCI. Recommend continuing asa, statin, and bb shu- operatively. Qualifiers: Coronary Disease-Associated Artery/Lesion type: [place] artery [place] vs. transplanted heart: [place] heart Associated angina: without angina Qualified Code(s): I25.10 - Atherosclerotic heart disease of [place] coronary artery without angina pectoris Discussion w patient/family: The assessment and plan as outlined above was discussed with the patient and/or family members who expressed understanding and agreement. All questions were answered. Thank you for involving us in the care of your patient. Please call with any questions. Subjective Principal diagnosis: severe spinal stenosis, abnormal stress Interval history: Mr. Waters is resting quietly in bed. States pain in his back has improved. Objective Vital Signs, Last 4 Hours Temp Pulse Resp BP Pulse Ox 01/15/18 07:28 97.9 F 83 16 130/71 93 General: Conversant, No Apparent Distress HEENT: Atraumatic, Normocephaly, Mucus Membranes Moist Neck: No JVD, Normal carotid pulses Cardiac: Reg Rate and Rhythm, Normal S1 and S2, No Murmur Lungs: Normal Breath Sounds, No Wheeze, Rales, Rhonchi Neuro: Alert and responsive, No focal deficits noted Abdomen: Soft, Non-Tender Skin: No rashes noted on visualized skin Musculoskeletal: No Chest Wall Tenderness Extremities: No Clubbing, No Cyanosis, No Edema, Normal Pulses Results 01/13/18 22:47 01/14/18 05:47 - Imaging and Cardiology Stress Test: report reviewed Echo: report reviewed Consult Discharge Plan - Plan Referrals: NONE,PCP [Primary Care Provider] -
--- NOTE | 2018-01-15 10:36 | Internal Med Progress Note ---
Hospitalist Progress Note - Encounter Date of Encounter: 01/15/18 Time of Encounter: 10:30 - Exam Vitals: Temp Pulse Resp BP Pulse Ox 97.9 F 83 16 130/71 93 01/15/18 07:28 01/15/18 07:28 01/15/18 07:28 01/15/18 07:28 01/15/18 07:28 Exam: Gen - Awake, alert, oriented x 3, no acute distress HEENT - NCAT, PERRLA, EOMI, hearing grossly intact, oropharynx benign CV - RRR, normal S1 and S2, no M/R/G, no BLE edema Resp - Normal WOB, CTAB, no W/R/R GI - Soft, NT/ND, no masses, normal bowel sounds, Skin - Warm, dry, no rashes/lesions/ulcers Psych - Normal mood and affect, no depression or anxiety - Assessment and Plan (1) Lumbar spinal stenosis Current Visit: No Status: Acute Assessment and Plan: 67 YO M presenting with spinal stenosis diagnosed with spinal MRI. s/p laminectomy. Tolerated procedure well with no acute complications (2) Diabetes mellitus Current Visit: No Status: Chronic Assessment and Plan: Patient has diabetes. - Home diabetes medications d/c and patient put on sliding scale. (3) CAD (coronary artery disease) Current Visit: Yes Status: Acute Assessment and Plan: Cardiology following and recommend continuing aspirin, beta gilda and plavix - Time Spent with Patient Total time spent is greater than 50% in coordination of care (as documented) at patient's floor/unit and/or counseling patient: Internal Medicine: Result - Labs CBC & Chem 7: 01/13/18 22:47 01/14/18 05:47 - ABG Interpretation ABG results: PT/INR, D-dimer PT 10.8 Seconds (9.4-12.1) 01/13/18 21:18 - Impressions Impressions Fluoroscopy 01/14/18 19:00 IMPRESSION: Intraprocedural fluoroscopic spot images as above. See separate procedure report for more information. D/ / Juancarlos Ponce MD / Juancarlos Ponce MD Interpreting Provider: Juancarlos Ponce MD Lumbar Spine X-Ray 01/14/18 19:00 IMPRESSION: Intraprocedural fluoroscopic spot images as above. See separate procedure report for more information. D/ / Juancarlos Ponce MD / Juancarlos Ponce MD Interpreting Provider: Juancarlos Ponce MD Consult Discharge Plan - Plan Referrals: NONE,PCP [Primary Care Provider] - Prescriptions: Aspirin Enteric Coated [Aspirin EC] 81 mg PO DAILY 30 Days #30 tablet.dr Atorvastatin [Lipitor] 40 mg PO HS 30 Days #30 tablet Clopidogrel [Plavix] 75 mg PO DAILY 30 Days #30 tablet Metoprolol [Lopressor] 25 mg PO BID 30 Days #60 tablet (1) Lumbar spinal stenosis Qualifiers: Qualified Code(s): M48.061 - Spinal stenosis, lumbar region without neurogenic claudication (2) Diabetes mellitus Qualifiers: Diabetes mellitus type: type 2 Diabetes mellitus terminal clerk insulin use: without terminal clerk use Diabetes mellitus complication status: without complication Qualified Code(s): E11.9 - Type 2 diabetes mellitus without complications (3) CAD (coronary artery disease) Qualifiers: Coronary Disease-Associated Artery/Lesion type: [place] artery [place] vs. transplanted heart: [place] heart Associated angina: without angina Qualified Code(s): I25.10 - Atherosclerotic heart disease of [place] coronary artery without angina pectoris
[2018-01-15] MEDS ORDERED: Nitroglycerin 0.4 MG TAB.SUBL SL PRN (10:40)
--- NOTE | 2018-01-15 11:20 | Discharge Summary ---
Orders not resulted at time of discharge: Pending orders 01/14/18 09:27 NM shankar perf SPECT multi [NM] Routine Date of Encounter: 01/15/18 Time of Encounter: 11:20 - Discharge Diagnosis (1) Lumbar spinal stenosis Priority: Primary Status: Acute Assessment and Plan: 67 year old male presenting with bilateral leg weakness that has been ongoing for several months. He was sent to [facility] to get a MRI of his spine. During his neurologic eval patient had decreased rectal tone in addition to his weakness. Patient also has lower back pain that is midline, focal, radiating down the right leg, 10/10 in severity, reproducible with palpation. Patient also stated that he was having decreased sensation b/l especially in the R let from the hip down. Patient reports that symptoms are alleviated when he is laying down and curled up with flexion of back. Patient denied saddle anesthesia. Spinal MRI done showed severe spinal stenosis of L4-L5. Dr. Packer with spinal surgery was consulted and he recommended admission with possible decompression. He underwent an L4-L5 laminectomy and tolerated procedure well with no acute complications. Prior to laminectomy he was seen by cardiology for clearance and he had a stress test done showing a reversible perfusion defect suggestive of ischemia. He is to be on aspirin, plavix, beta blockers and statin and follow up with cardiology as an outpatient for possible cath. He was discharged in a stable condition Qualifiers: Qualified Code(s): M48.061 - Spinal stenosis, lumbar region without neurogenic claudication (2) Diabetes mellitus Priority: Primary Status: Chronic Qualifiers: Diabetes mellitus type: type 2 Diabetes mellitus terminal gauger insulin use: without jail use Diabetes mellitus complication status: without complication Qualified Code(s): E11.9 - Type 2 diabetes mellitus without complications (3) CAD (coronary artery disease) Priority: Primary Status: Acute Qualifiers: Coronary Disease-Associated Artery/Lesion type: [place] artery [place] vs. transplanted heart: [place] heart Associated angina: without angina Qualified Code(s): I25.10 - Atherosclerotic heart disease of [place] coronary artery without angina pectoris Hospital course: Mr. Waters is a 67 year old male - Time Spent with Patient Total time spent providing and/or coordinating discharge services: - Discharge Medications Prescriptions: Aspirin Enteric Coated [Aspirin EC] 81 mg PO DAILY 30 Days #30 tablet. Atorvastatin [Lipitor] 40 mg PO HS 30 Days #30 tablet Clopidogrel [Plavix] 75 mg PO DAILY 30 Days #30 tablet Metoprolol [Lopressor] 25 mg PO BID 30 Days #60 tablet Home Medications: Lisinopril [Zestril] 20 mg PO DAILY 08/15/17 [History] metFORMIN [Glucophage] 500 mg PO BID 08/15/17 [History] Glimepiride [Amaryl] 1 mg PO DAILY #15 tablet 08/19/17 [Rx] Duloxetine HCl [Cymbalta] 60 mg PO DAILY 01/13/18 [History] HYDROcodone/Acet 5/325 mg [[place] 5-325 mg] 1 tab PO Q4H PRN 01/13/18 [History] Insulin ASPART [Novolog Flexpen] 0 unit SQ TID 01/13/18 [History] LORazepam [Ativan] 1 mg PO HS 01/13/18 [History] Lidocaine Patch [Lidoderm 5% patch] 1 each TP DAILY 01/13/18 [History] Polyethylene Glycol 3350 [MiraLAX Powder Bulk 17.9 Oz] 1 scoop PO DAILY 01/13/18 [History] Pregabalin [Lyrica] 150 mg PO TID 01/13/18 [History] Tizanidine HCl 4 mg PO DAILY 01/13/18 [History] Aspirin Enteric Coated [Aspirin EC] 81 mg PO DAILY 30 Days #30 tablet. 01/15/18 [Rx] Atorvastatin [Lipitor] 40 mg PO HS 30 Days #30 tablet 01/15/18 [Rx] Clopidogrel [Plavix] 75 mg PO DAILY 30 Days #30 tablet 01/15/18 [Rx] Metoprolol [Lopressor] 25 mg PO BID 30 Days #60 tablet 01/15/18 [Rx] Allergies/Adverse Reactions: Allergy/AdvReac Type Severity Reaction Status Date / Time No Known Allergies Allergy Verified 08/15/17 17:22 Date of admission: 01/13/18 22:27 Primary care physician: PCP NONE Consults: 01/14/18 21:33 Consult to Nurse Navigator [CONS] Routine Comment: spine navigator Consult to Occupational Therapy [CONS] Routine Comment: Evaluate, develop and implement POC Reason for Consult: Postoperative rehabilitation Does patient have active BEDREST order?: No Is patient medically & hemodynamically stable?: Yes Patient assessed for mobility or mobilized this visit?: No Consult to Physical Therapy [CONS] Routine Comment: Evaluate, develop and implement POC Reason for Consult: Postoperative rehabilitation Does patient have active BEDREST order?: No Is patient medically & hemodynamically stable?: Yes Patient assessed for mobility or mobilized this visit?: No - Constitutional Vitals: Temp Pulse Resp BP Pulse Ox 97.9 F 83 16 130/71 93 01/15/18 07:28 01/15/18 07:28 01/15/18 07:28 01/15/18 07:28 01/15/18 07:28 General appearance: Present: mild distress, A&O X 3, pleasant Exam: Gen - Awake, alert, oriented x 3, no acute distress HEENT - NCAT, PERRLA, EOMI, hearing grossly intact, oropharynx benign CV - RRR, normal S1 and S2, no M/R/G, no BLE edema Resp - Normal WOB, CTAB, no W/R/R GI - Soft, NT/ND, no masses, normal bowel sounds, Skin - Warm, dry, no rashes/lesions/ulcers Psych - Normal mood and affect, no depression or anxiety - Patient Status Disposition: Transfer SNF Condition: Good - Discharge Instructions Follow Up With: NONE,PCP [Primary Care Provider] -
--- NOTE | 2018-01-15 11:23 | Physician Discharge Referral ---
ExtendedCare Referral Info Transfer To: longterm - Diagnosis (1) Lumbar spinal stenosis Priority: Primary Status: Acute (2) Diabetes mellitus Priority: Primary Status: Chronic (3) CAD (coronary artery disease) Priority: Primary Status: Acute - Transfer Medications Prescriptions: Aspirin Enteric Coated [Aspirin EC] 81 mg PO DAILY 30 Days #30 tablet. Atorvastatin [Lipitor] 40 mg PO HS 30 Days #30 tablet Clopidogrel [Plavix] 75 mg PO DAILY 30 Days #30 tablet Metoprolol [Lopressor] 25 mg PO BID 30 Days #60 tablet Home Medications: Lisinopril [Zestril] 20 mg PO DAILY 08/15/17 [History] metFORMIN [Glucophage] 500 mg PO BID 08/15/17 [History] Glimepiride [Amaryl] 1 mg PO DAILY #15 tablet 08/19/17 [Rx] Duloxetine HCl [Cymbalta] 60 mg PO DAILY 01/13/18 [History] HYDROcodone/Acet 5/325 mg [[place] 5-325 mg] 1 tab PO Q4H PRN 01/13/18 [History] Insulin ASPART [Novolog Flexpen] 0 unit SQ TID 01/13/18 [History] LORazepam [Ativan] 1 mg PO HS 01/13/18 [History] Lidocaine Patch [Lidoderm 5% patch] 1 each TP DAILY 01/13/18 [History] Polyethylene Glycol 3350 [MiraLAX Powder Bulk 17.9 Oz] 1 scoop PO DAILY 01/13/18 [History] Pregabalin [Lyrica] 150 mg PO TID 01/13/18 [History] Tizanidine HCl 4 mg PO DAILY 01/13/18 [History] Aspirin Enteric Coated [Aspirin EC] 81 mg PO DAILY 30 Days #30 tablet. 01/15/18 [Rx] Atorvastatin [Lipitor] 40 mg PO HS 30 Days #30 tablet 01/15/18 [Rx] Clopidogrel [Plavix] 75 mg PO DAILY 30 Days #30 tablet 01/15/18 [Rx] Metoprolol [Lopressor] 25 mg PO BID 30 Days #60 tablet 01/15/18 [Rx] Allergies/Adverse Reactions: Allergy/AdvReac Type Severity Reaction Status Date / Time No Known Allergies Allergy Verified 08/15/17 17:22 - Respiratory Orders Smoking Cessation: Smoking cessation has been advised. For more information, call the [place] Tobacco Quit Line at 8-519-FJQB-NOW. - Mobility Orders Ambulate - Rehabiliation Orders Rehab Potential: Good - Diet Orders Cardiac CERTIFICATION: I certify that the transfer of the above named patient to an Extended Care Facility is necessary for the continuing treatment of the diagnosis listed. The above information is true and accurate reflection of patient's current condition. Confidential - Redisclosure prohibited without a patient's written consent.
--- NOTE | 2018-01-15 11:50 | Spine Progress Note ---
Date of Encounter: 01/15/18 Time of Encounter: 10:30 - Assessment and Plan (1) Lumbar stenosis without neurogenic claudication Current Visit: Yes Status: Chronic (2) Foot drop, right Current Visit: Yes Status: Chronic (3) Lumbar radiculopathy Current Visit: Yes Status: Chronic Subjective Principal diagnosis: severe spinal stenosis, Interval history: The patient is without complaints. Improved after surgery.Afebrile vital signs are stable. Dressing is clean dry and intact. Persists with weakness in right foot dorsiflexion Assessment :stable. Plan okay to discharge from my standpoint but will need AFO right foot. follow-up in 2 weeks in [facility]. Objective Vital signs: Vital Signs Temp Pulse Resp BP Pulse Ox 01/15/18 10:54 97.7 F 86 16 136/68 94 01/15/18 07:28 97.9 F 83 16 130/71 93 01/15/18 04:22 98.1 F 77 14 116/65 91 01/15/18 00:27 97.7 F 98 14 144/76 98 01/14/18 23:42 97.6 F 90 16 121/59 99 01/14/18 22:45 97.8 F 93 16 112/65 98 01/14/18 22:05 99 01/14/18 21:59 97.5 F L 86 16 134/72 99 01/14/18 21:35 97.6 F 85 16 134/67 95 01/14/18 21:10 97.9 F 79 14 150/71 100 01/14/18 21:00 81 14 140/65 99 01/14/18 20:50 97.9 F 73 14 163/77 100 01/14/18 20:40 73 14 178/79 99 01/14/18 20:30 73 14 191/85 100 01/14/18 20:20 97.1 F L 72 12 180/85 100 01/14/18 17:18 98.3 F 99 18 177/76 98 Intake and Output 01/14/18 01/15/18 01/15/18 23:59 07:59 15:59 Intake Total 100 / 100 Output Total 565 / 565 Balance -565 / -565 100 / 100 Intake: IV Fluids 100 / 100 Ancef 2,000 MG In 0.9 % Sodium 100 / 100 Chloride 100 ML @ 200 mls/hr IVPB Q8HR [facility] Rx#:[id number] Output: Urine 550 / 550 Estimated Blood Loss Other: Weight 71.9 kg Blood Glucose* 82 140 Patient Weight 01/15/18 23:59 Weight 71.9 kg - Labs CBC & BMP: 01/13/18 22:47 01/14/18 05:47 Labs: Abnormal lab results WBC 12.6 K/mcL (4.3-11.1) H 01/13/18 22:47 Carbon Dioxide 30 mEq/L (23-29) H 01/14/18 05:47 BUN 25 mg/dL (8-23) H 01/14/18 05:47 BUN/Creatinine Ratio 32 (6-26) H 01/14/18 05:47 B-Natriuretic Peptide 132 pg/mL (Less than 100) H 01/14/18 05:47 Consult Discharge Plan - Plan Referrals: NONE,PCP [Primary Care Provider] - Prescriptions: Aspirin Enteric Coated [Aspirin EC] 81 mg PO DAILY 30 Days #30 tablet. Atorvastatin [Lipitor] 40 mg PO HS 30 Days #30 tablet Clopidogrel [Plavix] 75 mg PO DAILY 30 Days #30 tablet Metoprolol [Lopressor] 25 mg PO BID 30 Days #60 tablet
[2018-01-15] MEDS: Ringers Solution, Lactated 1,000 ML IVC SCH (17:06)
[2018-01-15 17:14] VITALS: BP 115/62
[2018-01-16] MEDS ORDERED: Aspirin Enteric Coated 81 MG Tablet PO SCH (09:00)
== END 2018-01-15 18:20 | DRG 516 ==
LOC: 3BNU 15:51 → EMEROOARM 15:51 → OBSVTOIN 22:27 → 3BNU 23:10 → 3NENU 01-14 13:38
PROVIDERS: ADMIT Pediatrics; ATTEND Pediatrics